=== PATIENT | female | born 2000 | race Caucasian/White ===

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

== ENCOUNTER 2019-01-14 21:54 | Outpatient (CLI) | payer OTHER, MEDICAID ==
[~2019-01-14] VITALS: Ht 152.4 cm; Wt 85.4 kg
[2019-01-14 22:07] VITALS: BP 128/69
--- NOTE | 2019-01-14 22:56 | IPNPDOC ---
Text Note Date of Service The patient was seen on 01/14/19. NOTE Subjective: Patient is a 18-year-old female who is a at 34.6 weeks gestation with an PAXTON of 02/20/19 based off of her LMP and consistent with her first trimester ultrasound. Her has samantha complicated by a prior section, anxiety, depression, and bipolar disorder. Her bipolar is being managed by Karen. She presents to L&D [facility] for abdominal pain of 7/10 in her upper abdomen that started at 9 pm tonight. Reports upper abdominal pain is intermittent. Cramping noted that is intermittent. She also reports some back pain that is intermittent for the last 3 days. She denies dysuria, leaking of fluid or vaginal bleeding. Patient is unsure if she is having contractions. States active movement. Patient is a smoker and has smoked 3 cigarettes prior to arriving to the unit. Objective: VS: see below. FHR 130, moderate variability, positive accelerations, no decelerations. Contractions: irregular. Urine dip is negative with S.005. A+Ox3; Respiratory: regular rate without use of accessory muscles; Abdomen: gravid. Non-tender to touch. SVE: 1/50/-2, scant show, midposition, soft. No change after 3 hours. Assessment: IUP at 34.6 weeks, contractions, not in labor Plan: A dose of acetaminophen given to help with pain. Patient was found asleep upon repeat assessment and had to be woken-up for a check. She reports no more pain, contractions or cramping. No change in cervical exam. Patient discharged to home. She is to follow-up on 01/17/19 for routine care. Reviewed access to care, kick count, labor signs, and danger signs to report. VS,Varunbone, I+O VS, Varunbone, I+O Vital Signs Date Time Temp Pulse Resp B/P (MAP) Pulse Ox O2 Delivery O2 Flow Rate FiO2 01/14/19 22:07 97.5 108 128/69 (88) MOUNIKA SUN CNM Jan 14, 2019 22:56
[2019-01-14] MEDS ORDERED: ACETAMINOPHEN 500 MG TAB PO ONE (23:00)
[2019-01-14 23:48] VITALS: BP 130/77
[2019-01-15 02:02] VITALS: BP 130/76
== END 2019-01-15 02:20 | disposition home or self-care (01) ==
LOC: M LDO 21:54
PROVIDERS: ATTEND Advanced Practice Midwife
DX: O47.03 False labor before 37 completed weeks of gestation, third trimester (principal); O26.893 Other specified pregnancy related conditions, third trimester; R10.10 Upper abdominal pain, unspecified; O99.343 Other mental disorders complicating pregnancy, third trimester; O99.333 Smoking (tobacco) complicating pregnancy, third trimester; Z3A.34 34 weeks gestation of pregnancy; Z79.899 Other long term (current) drug therapy
CPT/HCPCS: 59025; G0463

== ENCOUNTER 2019-01-15 13:07 | Outpatient (CLI) | payer OTHER, MEDICAID ==
[~2019-01-15] VITALS: Ht 152.4 cm; Wt 84.6 kg
[2019-01-15 13:25] VITALS: BP 146/72
[2019-01-15 13:44] VITALS: BP 112/67
[2019-01-15] MEDS ORDERED: FAMOTIDINE 20 MG TAB PO ONE (15:00)
[2019-01-15 15:11] VITALS: BP 124/59
== END 2019-01-15 16:01 | disposition home or self-care (01) ==
LOC: M LDO 13:07
PROVIDERS: ATTEND Specialist
DX: O47.03 False labor before 37 completed weeks of gestation, third trimester (principal); O26.893 Other specified pregnancy related conditions, third trimester; M54.5 Low back pain; R10.2 Pelvic and perineal pain; O99.613 Diseases of the digestive system complicating pregnancy, third trimester; K21.9 Gastro-esophageal reflux disease without esophagitis; Z3A.34 34 weeks gestation of pregnancy
CPT/HCPCS: 59025; G0378; G0463

== ENCOUNTER → 2019-01-18 | Outpatient (CLI) | payer OTHER, MEDICAID ==
[~2019-01-18] MED LIST changes: +ACET-683 PO; +ARIP1TAB; +ERRI0.35 PO; +EVEN10003 PO; +KEFL500C17 PO; -LAMO200T2 PO; +LAMO200T3 PO; +PREN29TA4 PO
[2019-01-18 11:34] LABS: HEMATOCRIT 34.1 % (36.0-47.0); HEMOGLOBIN 11.1 g/dl (12.0-15.5); MEAN CORPUSCULAR HEMOGLOBIN 29.4 pg (27.0-33.0); MEAN CORPUSCULAR HGB CONC 32.6 g/dl (32.0-36.5); MEAN CORPUSCULAR VOLUME 90.2 fl (80.0-96.0); PLATELET COUNT, AUTOMATED 205 10^3/uL (150-450); RED BLOOD COUNT 3.78 10^6/uL (4.00-5.40); WHITE BLOOD COUNT 11.2 10^3/uL (4.0-10.0)
--- NOTE | 2019-01-18 12:03 | REP ---
OB ULTRASOUND: Real-time sonographic evaluation of the gravid uterus is performed and demonstrates a single living intrauterine gestation. Estimated gestational age 35 weeks 2 days. Based on LMP EDC 02/20/2019. Today's measurements indicate appropriate growth. BPD 81 mm = 32 weeks 5 days, 12th percentile HC 306 mm = 34 weeks 1 day, 32nd percentile AC 307 mm = 34 weeks 5 days, 41st percentile Femur length 68 mm = 34 weeks 6 days, 42nd percentile HC/AC ratio 1.0 within normal range. Estimated weight 2432 grams, 34th percentile. heart rate 152 beats per minute. Amniotic fluid within normal limits, MADALYN 15.4 within normal range of 7.8-24.9. S/D ratio 2.79 and RI 0.64 within normal range. Visualized anatomy includes lateral ventricles, upper lip, stomach, kidneys, and bladder which are grossly unremarkable. position vertex. Placenta posterior and fundal and grade 1 to 2 with no previa or abruption. Electronically Signed by Vignesh Griffin MD 01/21/2019 11:15 A
== END ==
LOC: M RAD 07:58 → M LAB 07:58
PROVIDERS: ATTEND Advanced Practice Midwife
DX: Z34.82 Encounter for supervision of other normal pregnancy, second trimester (principal); Z3A.35 35 weeks gestation of pregnancy

== ENCOUNTER 2019-01-30 11:40 | Emergency (ER) | payer OTHER, MEDICAID ==
[~2019-01-30] VITALS: Ht 152.4 cm; Wt 87.3 kg
[~2019-01-30 11:40] MED LIST changes: -ACETAMINOPHEN 500 MG TAB PO ONE; -EVEN10003 PO
[2019-01-30 12:32] VITALS: BP 148/96
[2019-01-30 12:35] LABS: HEMATOCRIT 32.3 % (36.0-47.0); HEMOGLOBIN 10.6 g/dl (12.0-15.5); MEAN CORPUSCULAR HGB CONC 32.8 g/dl (32.0-36.5); MEAN CORPUSCULAR VOLUME 85.4 fl (80.0-96.0); PLATELET COUNT, AUTOMATED 196 10^3/uL (150-450); RED BLOOD COUNT 3.78 10^6/uL (4.00-5.40); WHITE BLOOD COUNT 12.9 10^3/uL (4.0-10.0)
[2019-01-30 12:50] LABS: INR 1.04; PROTHROMBIN TIME 13.3 SECONDS (11.8-14.0)
[2019-01-30 12:51] LABS: PARTIAL THROMBOPLASTIN TIME 27.6 SECONDS (25.0-38.4)
[2019-01-30] MEDS ORDERED: EVEN10003 PO (12:59)
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
[2019-01-30 13:25] LABS: ALBUMIN 2.6 GM/DL (3.2-5.2); ALT/SGPT 13 U/L (12-78); BILIRUBIN,TOTAL 0.5 MG/DL (0.2-1.0); BLOOD UREA NITROGEN 10 MG/DL (7-18); CALCIUM LEVEL 8.7 MG/DL (8.5-10.1); CARBON DIOXIDE LEVEL 22 MEQ/L (21-32); CHLORIDE LEVEL 107 MEQ/L (98-107); CREATININE FOR GFR 0.52 MG/DL (0.55-1.30); GLUCOSE, FASTING 101 MG/DL (70-100); POTASSIUM SERUM 3.7 MEQ/L (3.5-5.1); SODIUM LEVEL 138 MEQ/L (136-145); TOTAL PROTEIN 6.8 GM/DL (6.4-8.2)
--- NOTE | 2019-01-31 13:30 | ECGEPIP ---
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
== END 2019-01-30 12:35 | disposition admitted as inpatient to this hospital (09) ==
LOC: M ED 11:40
DX: S80.12XA Contusion of left lower leg, initial encounter (principal); W10.9XXA Fall (on) (from) unspecified stairs and steps, initial encounter; Y92.099 Unspecified place in other non-institutional residence as the place of occurrence of the external cause; Y93.9 Activity, unspecified; Y99.9 Unspecified external cause status; Z3A.37 37 weeks gestation of pregnancy; O99.343 Other mental disorders complicating pregnancy, third trimester; Z79.899 Other long term (current) drug therapy

== ENCOUNTER → 2019-01-30 | Outpatient (CLI) | payer OTHER, MEDICAID ==
[~2019-01-30] VITALS: Ht 152.4 cm; Wt 85.0 kg
[~2019-01-30] MED LIST changes: -ACET-683 PO; +ACETAMINOPHEN 500 MG TAB PO ONE; -ARIP1TAB; -ERRI0.35 PO; -KEFL500C17 PO; +LAMO200T2 PO; -LAMO200T3 PO; -PREN29TA4 PO
[2019-01-30 13:01] VITALS: BP 110/59
[2019-01-30 13:35] LABS: HEMATOCRIT 32.3 % (36.0-47.0); HEMOGLOBIN 10.7 g/dl (12.0-15.5); MEAN CORPUSCULAR HEMOGLOBIN 28.2 pg (27.0-33.0); MEAN CORPUSCULAR HGB CONC 33.1 g/dl (32.0-36.5); MEAN CORPUSCULAR VOLUME 85.2 fl (80.0-96.0); PLATELET COUNT, AUTOMATED 204 10^3/uL (150-450); RED BLOOD COUNT 3.79 10^6/uL (4.00-5.40); WHITE BLOOD COUNT 13.8 10^3/uL (4.0-10.0)
[2019-01-30 13:54] LABS: INR 1.07; PARTIAL THROMBOPLASTIN TIME 28.1 SECONDS (25.0-38.4); PROTHROMBIN TIME 13.6 SECONDS (11.8-14.0)
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
[2019-01-30 15:47] VITALS: BP 102/57
== END ==
LOC: M LDO 12:40
PROVIDERS: ATTEND Advanced Practice Midwife
DX: Z04.3 Encounter for examination and observation following other accident (principal); W10.9XXA Fall (on) (from) unspecified stairs and steps, initial encounter; Y92.89 Other specified places as the place of occurrence of the external cause; Y93.89 Activity, other specified; Y99.8 Other external cause status; O36.8931 Maternal care for other specified fetal problems, third trimester, fetus 1; Z3A.37 37 weeks gestation of pregnancy
CPT/HCPCS: 59025; G0378; G0463

== ENCOUNTER 2019-02-06 20:04 | Outpatient (CLI) | payer OTHER, MEDICAID ==
[~2019-02-06] VITALS: Ht 152.4 cm; Wt 85.4 kg
[~2019-02-06 20:04] MED LIST changes: -ACET-683 PO; -ERRI0.35 PO
[2019-02-06 20:17] VITALS: BP 133/65
[2019-02-06 20:38] VITALS: BP 133/65
[2019-02-06 22:44] VITALS: BP 135/77
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
== END 2019-02-06 23:19 | disposition home or self-care (01) ==
LOC: M LDO 20:04
PROVIDERS: ATTEND Advanced Practice Midwife
DX: O26.893 Other specified pregnancy related conditions, third trimester (principal); O36.8130 Decreased fetal movements, third trimester, not applicable or unspecified; R10.2 Pelvic and perineal pain; O47.1 False labor at or after 37 completed weeks of gestation; Z3A.38 38 weeks gestation of pregnancy
CPT/HCPCS: 36415; 59025; 87081; 87389; G0378; G0463

== ENCOUNTER → 2019-02-06 | Outpatient (CLI) | payer OTHER, MEDICAID ==
[~2019-02-06] MED LIST changes: +ACET-683 PO; +ERRI0.35 PO; +EVEN10003 PO
== END ==
LOC: M SMT 13:33
PROVIDERS: ATTEND Advanced Practice Midwife
DX: Z36.89 Encounter for other specified antenatal screening (principal)

== ENCOUNTER 2019-02-07 10:49 | Outpatient (CLI) | payer OTHER, MEDICAID ==
[~2019-02-07] VITALS: Ht 152.4 cm; Wt 84.5 kg
[2019-02-07 11:05] VITALS: BP 126/58
[2019-02-07 11:50] VITALS: BP 122/68
--- NOTE | 2019-02-07 14:23 | IPNPDOC ---
Text Note Date of Service The patient was seen on 02/07/19. NOTE S: 18 yo at 38 weeks 1 day EGA, complaining of leakage of fluid and progressively stronger contractions. Denies discharge or bleeding, had intercourse last night. Is feeling baby move O: Vital stable Abdomen: Gravid Sterile speculum exam: no pooling, nitrazine negative SVE: closed, thick, high Microscopy: no ferning FHR: 150 bpm, moderate variability, cat 1 tracing, reactive NST TOCO: no contractions Bedside US: MADALYN >7, MVP 2.75 A/P: 18 y at 38 weeks 1 day EGA, not in labor - status reassuring -adequate amniotic fluid volume -DC home, signs and symptoms early labor reviewed, access after hours VS,Fishbone, I+O VS, Fishbone, I+O Vital Signs Date Time Temp Pulse Resp B/P (MAP) Pulse Ox O2 Delivery O2 Flow Rate FiO2 02/07/19 11:50 77 18 122/68 (86) 02/07/19 11:05 97.7 GME ATTESTATION GME ATTESTATION My faculty preceptor for this patient encounter was physically present during the encounter and was fully available. All aspects of the patient interview, examination, medical decision making process, and medical care plan development were reviewed and approved by the faculty preceptor. The faculty preceptor is aware and concurs with the plan as stated in the body of this note and will attest to such by his/her cosignature. ANTONIO CLINE DO Feb 07, 2019 14:23
== END 2019-02-07 11:53 | disposition home or self-care (01) ==
LOC: M LDO 10:49
PROVIDERS: ATTEND Obstetrics & Gynecology
DX: O26.893 Other specified pregnancy related conditions, third trimester (principal); N89.8 Other specified noninflammatory disorders of vagina; O99.89 Other specified diseases and conditions complicating pregnancy, childbirth and the puerperium; N93.0 Postcoital and contact bleeding; Z3A.38 38 weeks gestation of pregnancy

== ENCOUNTER 2019-02-07 22:50 | Inpatient (IN) | payer OTHER, MEDICAID ==
[~2019-02-07] VITALS: Ht 152.4 cm; Wt 86.1 kg
[2019-02-07 23:11] VITALS: BP 142/82
[2019-02-07] MEDS ORDERED: PENICILLIN G POTASSIUM IV 5 MU in D5W MINI-BAG PLUS 100 ML IV STA (23:17)
[2019-02-07] MEDS ORDERED: LACTATED RINGER'S 1000 ML IV STA (23:17)
[2019-02-07] MEDS: LR 1,000 ML IV SCH (23:17)
[2019-02-07 23:40] LABS: HEMATOCRIT 32.2 % (36.0-47.0); HEMOGLOBIN 10.6 g/dl (12.0-15.5); MEAN CORPUSCULAR HEMOGLOBIN 28.6 pg (27.0-33.0); MEAN CORPUSCULAR HGB CONC 32.9 g/dl (32.0-36.5); PLATELET COUNT, AUTOMATED 218 10^3/uL (150-450); WHITE BLOOD COUNT 13.2 10^3/uL (4.0-10.0)
[2019-02-08] VITALS (51 sets, daily range): BP systolic 78–144; BP diastolic 48–113
[2019-02-08 00:53] LABS: AMPHETAMINES URINE REFLEX NEGATIVE (NEGATIVE); BARBITURATES URINE REFLEX NEGATIVE (NEGATIVE); BENZODIAZEPINES URINE REFLEX NEGATIVE (NEGATIVE); CANNABINOIDS URINE REFLEX NEGATIVE (NEGATIVE); COCAINE METABOLITE URINE REFLE NEGATIVE (NEGATIVE); METHADONE URINE REFLEX NEGATIVE (NEGATIVE); OPIATES URINE REFLEX NEGATIVE (NEGATIVE); PHENCYCLIDINE URINE REFLEX NEGATIVE (NEGATIVE)
[2019-02-08] MEDS ORDERED: OXYTOCIN DRIP 30 UNITS in APPROPRIATE DILUENT 1 EA IV SCH (01:00)
[2019-02-08] MEDS: PENICILLIN G POTASSIUM IV 2.5 MU in APPROPRIATE DILUENT 1 EA IV SCH ×2 (04:19→08:35)
[2019-02-08] MEDS ORDERED: FENTANYL 2MCG/ML ROPIVACAINE 0.2% IN 0.9% NACL 100ML IVBAG As Ordered ONE (04:51)
[2019-02-08] MEDS ORDERED: EPIDURAL/PCA KEYS XX PRN (06:00)
[2019-02-08] MEDS ORDERED: diphenhydrAMINE INJ 50MG/ML VIAL (J1200) IV PRN (06:00)
[2019-02-08] MEDS ORDERED: REFRIGERATOR IV KEYS XX PRN (06:00)
[2019-02-08] MEDS ORDERED: ePHEDrine SULFATE 25 MG/5 ML(5MG/ML) SYRINGE IV PRN (06:00)
[2019-02-08] MEDS ORDERED: ONDANSETRON 4MG/2ML VIAL (J2405) IV PRN (06:00)
[2019-02-08] MEDS ORDERED: EPIDURAL COMMENT XX SCH (06:00)
[2019-02-08] MEDS ORDERED: FENTANYL/ROPIVACAINE/NACL BAG 100 ML EPIDURAL SCH (06:00)
[2019-02-08] MEDS ORDERED: LACTATED RINGER'S 1000 ML IV PRN (06:00)
[2019-02-08] MEDS ORDERED: NALOXONE INJ 0.4 MG/1 ML VIAL (J2310) IV PRN (06:00)
[2019-02-08] MEDS: LR 1,000 ML IV SCH (07:52)
--- NOTE | 2019-02-08 08:46 | IPNPDOC ---
Text Note Date of Service The patient was seen on 02/08/19. NOTE Reports feeling more pressure FH variable decels, moderate variability, Cat II SVE Update phyician. Anticipate VS,Fishbone, I+O VS, Fishbone, I+O Laboratory Tests 02/07/19 23:34 Red Blood Count 3.70 L, Mean Corpuscular Volume 87.0, Mean Corpuscular Hemoglobin 28.6, Mean Corpuscular Hemoglobin Concent 32.9, Red Cell Distribution Width 14.3 Vital Signs Date Time Temp Pulse Resp B/P (MAP) Pulse Ox O2 Delivery O2 Flow Rate FiO2 02/08/19 07:49 75 18 125/56 (79) 02/08/19 07:42 98.7 Anyi Chan CNM Feb 08, 2019 08:46
[2019-02-08 11:16] LABS: CORD GAS ABE V -5.9; CORD GAS HCO3 V 18.4 MEQ/L; CORD GAS O2 SAT V 92.4 %; CORD GAS PCO2 V 33.1 mmHg; CORD GAS PH V 7.363 UNITS; CORD GAS PO2 V 53.1 mmHg; CORD GAS SBC V 19.6 MEQ/L; CORD GAS TCO2 V 19.4 MEQ/L
[2019-02-08 11:18] LABS: CORD GAS ABE A -7.4; CORD GAS HCO3 A 19.2 MEQ/L; CORD GAS O2 SAT A 93.6 %; CORD GAS PH A 7.268 UNITS; CORD GAS SBC A 18.4 MEQ/L; CORD GAS TCO2 A 20.5 MEQ/L
[2019-02-08] MEDS ORDERED: MOM 30ML SUSPENSION UDC PO PRN (11:30)
[2019-02-08] MEDS ORDERED: RHOGAM 300 MCG (1500 IU) INJ (J2790) IM SCH (11:30)
[2019-02-08] MEDS ORDERED: IBUPROFEN 600 MG TAB PO PRN (11:30)
[2019-02-08] MEDS ORDERED: ACETAMINOPHEN TAB 650MG DOSE (2X325MG) PO PRN (11:30)
[2019-02-08] MEDS ORDERED: DIBUCAINE 1% OINTMENT 30GM TOP PRN (11:30)
[2019-02-08] MEDS ORDERED: DOCUSATE SODIUM 100 MG CAP PO PRN (11:30)
[2019-02-08] MEDS ORDERED: MEASLES,MUMPS,RUBELLA VACCINE INJ (MMR-II) (90707) SC SCH (11:30)
[2019-02-08] MEDS ORDERED: METHYLERGONOVINE MALEATE 0.2 MG TAB PO PRN (11:30)
--- NOTE | 2019-02-08 11:35 | DNPDOC ---
[facility] Delivery Note Delivery Note DATE OF DELIVERY: 02/08/19 PREDELIVERY DIAGNOSIS: 38+2/7 weeks' gestation and labor. POST DELIVERY DIAGNOSIS: Delivered. PROCEDURE: Spontaneous vaginal delivery/ . PROVIDER: Anyi Chan CNM ANESTHESIA: Epidural. ESTIMATED BLOOD LOSS: 300 mL. FINDINGS: 6 pound 13 ounce, 3100gm female , Score 8/9, nuchal cord times 1 tight. DELIVERY SUMMARY: Patient is a 18-year-old 2 now para 2-0-0-2 who was admitted to labor and delivery for spontaneous rupture of membranes 02/07/19 @ 2100. She received pitocin augmentation of labor and adequate GBS prophylaxis. An epidural was utilized for labor coping. Fully dilated 1000. Viable female delivered KORY, restituted to LOP and delivered via somersault maneuver through tight nuchal cord @ 1048. Successful . Spontaneous respirations, transiti oned on maternal abdomen. Cord gases obtained, arterial 7.268, BE -7.4 and venous 7.363, BE -5.9. Cord doubly clamped and cut once pulsations ceased, apgars 8/9. Placenta art, intact with 3v cord @ 1059. Fundus firmed with massage and IV pitocin bolus. 2nd degree vaginal laceration with bilateral labial extensions repaired with 3-0 vicryl rapide. EBL 300ml. Sponge, sharp and instrument count correct. Mom is naming her daughter Vanessa. Anyi Chan CNM Feb 08, 2019 11:35
[2019-02-08] MEDS: ACETAMINOPHEN 500 MG TAB PO PRN (17:59)
[2019-02-09 06:00] VITALS: BP 104/59
[2019-02-09] MEDS: IBUPROFEN 800 MG TAB PO PRN (06:22)
[2019-02-09] MEDS: PRENATAL VITAMINS CHEWABLE TABLET PO SCH (08:29)
--- NOTE | 2019-02-09 08:43 | IPNPDOC ---
Text Note Date of Service The patient was seen on 02/09/19. NOTE Day 1 s/p ; uncomplicated S: Pain well controlled, lochia and bleeding decreasing, voiding spontaneously, ambulating without assistance, tolerating regular diet.Breast feeding. O: vitals stable Heart: RRR, no murmurs/gallops/rubs Lungs: CTA BL Abd: U-1 and firm Ext: mild bilateral leg swelling, nontender, Lilliam's negative bilaterally A/P: 18 yo G2 now P2. day 1 s/p . Currently hemodynamically stable, afebrile, good pain control. Recovering well. -Routine care and advancement -Anticipate discharge tomorrow VS,Fishbone, I+O VS, Fishbone, I+O Vital Signs Date Time Temp Pulse Resp B/P (MAP) Pulse Ox O2 Delivery O2 Flow Rate FiO2 02/09/19 06:00 97.2 67 16 104/59 (74) 98 I&O- Last 24 Hours up to 6 AM 02/09/19 06:00 Intake Total 2847 ml Output Total 2000 ml Balance 847 ml GME ATTESTATION GME ATTESTATION My faculty preceptor for this patient encounter was physically present during the encounter and was fully available. All aspects of the patient interview, examination, medical decision making process, and medical care plan development were reviewed and approved by the faculty preceptor. The faculty preceptor is aware and concurs with the plan as stated in the body of this note and will attest to such by his/her cosignature. ANTONIO CLINE DO Feb 09, 2019 08:43
[2019-02-09] MEDS: ACETAMINOPHEN 500 MG TAB PO PRN (17:50)
[2019-02-09 18:00] VITALS: BP 117/72
[2019-02-10] MEDS: IBUPROFEN 800 MG TAB PO PRN (05:20)
[2019-02-10 06:47] VITALS: BP 109/60
[2019-02-10] MEDS: PRENATAL VITAMINS CHEWABLE TABLET PO SCH (09:22)
[2019-02-10] MEDS ORDERED: ERRI0.35 PO (11:53)
[2019-02-10] MEDS ORDERED: ACET-683 PO (11:53)
[2019-02-10] MEDS ORDERED: IBUP80TA PO (11:53)
== END 2019-02-10 12:35 | disposition home or self-care (01) | DRG 807 ==
LOC: M LDO 22:50 → M LDI 23:04 → M OBS 02-08 14:06
PROVIDERS: ADMIT Obstetrics & Gynecology; ATTEND Advanced Practice Midwife
PROC: 10E0XZZ Delivery of Products of Conception, External Approach (ICD-10-PCS; principal; 2019-02-08)
PROC: 0KQM0ZZ Repair Perineum Muscle, Open Approach (ICD-10-PCS; 2019-02-08)
DX: O34.211 Maternal care for low transverse scar from previous cesarean delivery (principal); Z37.0 Single live birth; Z3A.38 38 weeks gestation of pregnancy; O99.824 Streptococcus B carrier state complicating childbirth; O70.1 Second degree perineal laceration during delivery; O69.1XX0 Labor and delivery complicated by cord around neck, with compression, not applicable or unspecified

== ENCOUNTER 2019-03-30 15:58 | Emergency (ER) | payer OTHER, MEDICAID ==
[~2019-03-30] VITALS: Ht 152.4 cm; Wt 83.3 kg
[~2019-03-30 15:58] MED LIST changes: +ACET-683 PO; +ERRI0.35 PO
[2019-03-30] MEDS ORDERED: ARIP1TAB (16:04)
[2019-03-30 16:48] LABS: URINE PREG TEST NEGATIVE (NEGATIVE)
[2019-03-30 17:37] LABS: BASO # 0.1 10^3/uL (0.0-0.2); BASO % 0.8 % (0.0-1.0); EOS # 0.5 10^3/uL (0.0-0.5); EOS % 4.6 % (0.0-3.0); HEMOGLOBIN 12.8 g/dl (12.0-15.5); LYMPH # 1.8 10^3/uL (1.5-5.0); LYMPH % 18.1 % (24.0-44.0); MEAN CORPUSCULAR HEMOGLOBIN 27.4 pg (27.0-33.0); MEAN CORPUSCULAR VOLUME 85.5 fl (80.0-96.0); MONO # 0.5 10^3/uL (0.0-0.8); MONO % 4.9 % (0.0-5.0); NEUTROPHILS # 7.1 10^3/uL (1.5-8.5); NEUTROPHILS % 71.4 % (36.0-66.0); PLATELET COUNT, AUTOMATED 297 10^3/uL (150-450); RED BLOOD COUNT 4.68 10^6/uL (4.00-5.40); WHITE BLOOD COUNT 9.9 10^3/uL (4.0-10.0)
[2019-03-30 18:04] LABS: ALBUMIN 3.6 GM/DL (3.2-5.2); ALT/SGPT 30 U/L (12-78); BILIRUBIN,DIRECT 0.2 MG/DL (0.0-0.2); BILIRUBIN,TOTAL 0.6 MG/DL (0.2-1.0); BLOOD UREA NITROGEN 11 MG/DL (7-18); CALCIUM LEVEL 8.8 MG/DL (8.5-10.1); CARBON DIOXIDE LEVEL 28 MEQ/L (21-32); CHLORIDE LEVEL 108 MEQ/L (98-107); CREATININE FOR GFR 0.72 MG/DL (0.55-1.30); GLUCOSE, FASTING 80 MG/DL (70-100); LIPASE 104 U/L (73-393); POTASSIUM SERUM 4.1 MEQ/L (3.5-5.1); SODIUM LEVEL 140 MEQ/L (136-145)
[2019-03-30] MEDS ORDERED: MACR100C43 PO ×2 (18:33→19:40)
[2019-03-30 18:34] LABS: CHLAMYDIA DNA AMPLIFICATION NEGATIVE (NEGATIVE); GC DNA AMPLIFICATION NEGATIVE (NEGATIVE)
[2019-03-30] MEDS ORDERED: NITROFURANTOIN (MACROBID) 100 MG CAP PO ONE (18:45)
--- NOTE | 2019-03-30 19:21 | REPVR ---
PROCEDURE INFORMATION: Exam: US Pelvis Complete, Transabdominal and US Pelvis, Transvaginal Exam date and time: 03/30/2019 6:20 PM Clinical history: 18 years old, female; Pelvic pain; Additional info: Suprapubic, llq pain R/O torsion TECHNIQUE: Imaging protocol: Real-time transabdominal and transvaginal pelvic ultrasound (complete) with image documentation. Transvaginal imaging was used for better evaluation of the endometrium and adnexa. COMPARISON: US OBS FOLL UP OR REPEAT EACH GES 01/18/2019 9:18 AM FINDINGS: Uterus/cervix: The uterus is anteverted. The uterus has a normal appearance. The uterus measures 8.6 cm x 4.1 cm x 4.7 cm. The endometrial stripe measures 5.2 mm. There are a few endometrial calcifications, nonspecific. Right adnexa: The right ovary has a normal appearance, containing multiple tiny follicles. The right ovary measures 3.4 cm x 1.9 cm x 2.0 cm. No right ovarian torsion. Left adnexa: The left ovary is best visualized on transabdominal imaging and has a normal appearance, measuring 3.0 cm x 1.3 cm x 1.7 cm. No left ovarian torsion. Free fluid: None. Bladder: Urinary bladder is nondistended and not visualized. IMPRESSION: No ovarian torsion or other acute abnormality. Electronically signed by: Ousmane Pugh On 03/30/2019 19:21:31 PM
[2019-03-30 19:23] VITALS: BP 121/76
== END 2019-03-30 19:52 | disposition home or self-care (01) ==
LOC: M ED 15:58
DX: N39.0 Urinary tract infection, site not specified (principal); F17.200 Nicotine dependence, unspecified, uncomplicated; Z79.899 Other long term (current) drug therapy

== ENCOUNTER 2019-04-22 19:59 | Emergency (ER) | payer OTHER, MEDICAID ==
[~2019-04-22] VITALS: Ht 152.4 cm; Wt 85.9 kg
[2019-04-22 19:59] VITALS: BP 138/81
[~2019-04-22 19:59] MED LIST changes: +ARIP1TAB
== END 2019-04-22 21:38 | disposition home or self-care (01) ==
LOC: M ED 19:59
DX: R11.2 Nausea with vomiting, unspecified (principal); F31.89 Other bipolar disorder; F41.9 Anxiety disorder, unspecified; F60.3 Borderline personality disorder; F17.200 Nicotine dependence, unspecified, uncomplicated; E66.9 Obesity, unspecified; Z79.3 Long term (current) use of hormonal contraceptives; Z79.899 Other long term (current) drug therapy

== ENCOUNTER 2019-05-19 18:12 | Emergency (ER) | payer OTHER, MEDICAID ==
[~2019-05-19] VITALS: Ht 152.4 cm; Wt 87.1 kg
[~2019-05-19 18:12] MED LIST changes: -LAMO200T2 PO; +LAMO200T3 PO
[2019-05-19] MEDS ORDERED: AZITHROMYCIN 250 MG TAB PO ONE (19:15)
[2019-05-19] MEDS ORDERED: AZITHROMYCIN SUSP 200MG/5ML 30ML BOTTLE (FOR INPATIENT ORDERS) PO ONE (19:15)
[2019-05-19] MEDS ORDERED: cefTRIAXone SOD 250 MG VIAL (J0696) IM ONE (19:15)
[2019-05-19] MEDS ORDERED: LIDOCAINE 1% SDV 5 ML VIAL DILUENT ONE (19:15)
[2019-05-19 19:29] VITALS: BP 131/81
[2019-05-19 20:36] LABS: CHLAMYDIA DNA AMPLIFICATION POSITIVE (NEGATIVE); GC DNA AMPLIFICATION NEGATIVE (NEGATIVE)
== END 2019-05-19 19:31 | disposition home or self-care (01) ==
LOC: M ED 18:12
DX: Z11.3 Encounter for screening for infections with a predominantly sexual mode of transmission (principal); A74.9 Chlamydial infection, unspecified; Z72.51 High risk heterosexual behavior; F17.200 Nicotine dependence, unspecified, uncomplicated; Z79.3 Long term (current) use of hormonal contraceptives
CPT/HCPCS: 84702; 87210; 87661; 99283; J0696

== ENCOUNTER 2019-06-16 09:46 | Emergency (ER) | payer OTHER, MEDICAID ==
[~2019-06-16] VITALS: Ht 152.4 cm; Wt 86.0 kg
[2019-06-16] MEDS ORDERED: PREN29TA4 PO (10:25)
[2019-06-16 10:33] LABS: BASO % 0.5 % (0.0-1.0); EOS # 0.1 10^3/uL (0.0-0.5); EOS % 1.9 % (0.0-3.0); HEMATOCRIT 40.1 % (36.0-47.0); HEMOGLOBIN 12.7 g/dl (12.0-15.5); LYMPH # 1.8 10^3/uL (1.5-5.0); LYMPH % 31.1 % (24.0-44.0); MEAN CORPUSCULAR HEMOGLOBIN 26.6 pg (27.0-33.0); MEAN CORPUSCULAR HGB CONC 31.7 g/dl (32.0-36.5); MEAN CORPUSCULAR VOLUME 83.9 fl (80.0-96.0); MONO # 0.5 10^3/uL (0.0-0.8); MONO % 8.1 % (0.0-5.0); NEUTROPHILS # 3.3 10^3/uL (1.5-8.5); NEUTROPHILS % 58.2 % (36.0-66.0); PLATELET COUNT, AUTOMATED 226 10^3/uL (150-450); RED BLOOD COUNT 4.78 10^6/uL (4.00-5.40); WHITE BLOOD COUNT 5.7 10^3/uL (4.0-10.0)
[2019-06-16 10:50] LABS: BLOOD UREA NITROGEN 8 MG/DL (7-18); CALCIUM LEVEL 8.4 MG/DL (8.5-10.1); CARBON DIOXIDE LEVEL 24 MEQ/L (21-32); CHLORIDE LEVEL 109 MEQ/L (98-107); CREATININE FOR GFR 0.71 MG/DL (0.55-1.30); GLUCOSE, FASTING 95 MG/DL (70-100); SODIUM LEVEL 142 MEQ/L (136-145)
--- NOTE | 2019-06-16 12:15 | REP ---
EMERGENCY FIRST TRIMESTER OBSTETRIC SONOGRAPHY: History: Vaginal bleeding. LMP May 25, 2019. FINDINGS: Transabdominal and transvaginal scanning demonstrates a normal-sized empty uterus. Uterine dimensions are 9.4 x 4.0 x 4.9 cm. Endometrial echo is 0.6 cm thick. No intrauterine gestation is seen. No gestational sac or embryonic pole is seen. No free fluid is noted. Normal left ovary is seen measuring 3.2 x 1.3 x 1.5 cm. Right ovary is unremarkable measuring 2.6 x 1.5 x 1.9 cm. Ovarian Doppler flow is present bilaterally, resistive indices are 0.54 and 0.66 on the right and left respectively. IMPRESSION: No intrauterine gestational sac seen. No adnexal lesion or free fluid noted. Nonspecific sonographic findings in the face of positive test. Clinical and possibly sonographic followup suggested. Electronically Signed by Camacho Maharaj MD 06/16/2019 12:18 P
[2019-06-16 12:49] LABS: CHLAMYDIA DNA AMPLIFICATION POSITIVE (NEGATIVE); GC DNA AMPLIFICATION NEGATIVE (NEGATIVE)
[2019-06-16] MEDS ORDERED: AZITHROMYCIN 250 MG TAB PO ONE (13:00)
[2019-06-16] MEDS ORDERED: KEFL500C17 PO (13:14)
[2019-06-16 13:20] VITALS: BP 114/85
== END 2019-06-16 13:30 | disposition home or self-care (01) ==
LOC: M ED 09:46
DX: O20.0 Threatened abortion (principal); O23.41 Unspecified infection of urinary tract in pregnancy, first trimester; O98.311 Other infections with a predominantly sexual mode of transmission complicating pregnancy, first trimester; O23.591 Infection of other part of genital tract in pregnancy, first trimester; O26.891 Other specified pregnancy related conditions, first trimester; O20.8 Other hemorrhage in early pregnancy; Z32.01 Encounter for pregnancy test, result positive; Z86.19 Personal history of other infectious and parasitic diseases; Z87.448 Personal history of other diseases of urinary system; O99.341 Other mental disorders complicating pregnancy, first trimester; O99.331 Smoking (tobacco) complicating pregnancy, first trimester; Z79.899 Other long term (current) drug therapy

== ENCOUNTER → 2019-06-18 | Outpatient (CLI) | payer OTHER, MEDICAID ==
[~2019-06-18] MED LIST changes: +KEFL500C17 PO; +PREN29TA4 PO
== END ==
LOC: M LAB 08:13
PROVIDERS: ATTEND Physician Assistant
DX: O46.90 Antepartum hemorrhage, unspecified, unspecified trimester (principal)

== ENCOUNTER 2019-08-04 00:01 | Emergency (ER) | payer OTHER, MEDICAID ==
[~2019-08-04] VITALS: Ht 152.4 cm; Wt 81.0 kg
[2019-08-04] MEDS ORDERED: GI COCKTAIL 50ML BTL(HYOSCYAMINE/MAALOX/LIDOCAINE VISCOUS)(1:3:1) PO ONE (00:45)
[2019-08-04] MEDS ORDERED: NS 1,000 ML IV ONE (00:45)
--- NOTE | 2019-08-04 01:35 | REPVR ---
PROCEDURE INFORMATION: Exam: US Abdomen Limited, Right Upper Quadrant Exam date and time: 08/04/2019 1:17 AM Age: 19 years old Clinical indication: Abdominal pain; Epigastric; Additional info: Ruq abd pain TECHNIQUE: Imaging protocol: Real-time ultrasound of the abdomen with image documentation. Examination was focused on the right upper quadrant. COMPARISON: No relevant prior studies available. FINDINGS: Liver: The liver demonstrates increased attenuation with no focal defects. Gallbladder: The gallbladder is contracted with no stones and no wall thickening measuring 1-2 mm. There is a negative sono Pratt's sign. Common bile duct: The CBD measures 3 mm. Pancreas: The pancreas is not evaluated due to gas shadowing. Right kidney: The right kidney measures 11.9 cm with no hydronephrosis. IMPRESSION: 1. Fatty infiltration of the liver. 2. Otherwise negative right upper quadrant sonogram. The pancreas is not evaluated due to gas shadowing. Electronically signed by: Mehul Muñoz On 08/04/2019 01:35:34 AM
[2019-08-04 01:40] LABS: BASO # 0.1 10^3/uL (0.0-0.2); BASO % 0.4 % (0.0-1.0); EOS # 0.4 10^3/uL (0.0-0.5); HEMATOCRIT 38.1 % (36.0-47.0); HEMOGLOBIN 12.5 g/dl (12.0-15.5); LYMPH # 2.1 10^3/uL (1.5-5.0); LYMPH % 17.8 % (24.0-44.0); MEAN CORPUSCULAR HEMOGLOBIN 27.5 pg (27.0-33.0); MEAN CORPUSCULAR HGB CONC 32.8 g/dl (32.0-36.5); MEAN CORPUSCULAR VOLUME 83.7 fl (80.0-96.0); MONO # 0.6 10^3/uL (0.0-0.8); MONO % 5.2 % (0.0-5.0); NEUTROPHILS # 8.6 10^3/uL (1.5-8.5); NEUTROPHILS % 73.2 % (36.0-66.0); PLATELET COUNT, AUTOMATED 279 10^3/uL (150-450); RED BLOOD COUNT 4.55 10^6/uL (4.00-5.40); WHITE BLOOD COUNT 11.8 10^3/uL (4.0-10.0)
[2019-08-04 02:00] LABS: ALBUMIN 3.5 GM/DL (3.2-5.2); BILIRUBIN,DIRECT 0.2 MG/DL (0.0-0.2); BILIRUBIN,TOTAL 0.5 MG/DL (0.2-1.0); TOTAL PROTEIN 6.6 GM/DL (6.4-8.2)
[2019-08-04] MEDS ORDERED: OMEP40CA97 PO (03:07)
[2019-08-04 03:13] VITALS: BP 150/66
== END 2019-08-04 03:21 | disposition home or self-care (01) ==
LOC: EDBD 00:01 → M ED 00:01
DX: R10.13 Epigastric pain (principal); F41.9 Anxiety disorder, unspecified; F32.9 Major depressive disorder, single episode, unspecified; K76.0 Fatty (change of) liver, not elsewhere classified; F17.200 Nicotine dependence, unspecified, uncomplicated; Z79.899 Other long term (current) drug therapy

== ENCOUNTER → 2019-11-21 | Outpatient (REF) | payer OTHER, MEDICAID ==
[~2019-11-21] MED LIST changes: -ERRI0.35 PO; +ERRI0.355 PO; +OMEP40CA97 PO
== END ==
LOC: M LAB REF 13:28
PROVIDERS: ATTEND Physician Assistant
DX: N39.0 Urinary tract infection, site not specified (principal)

== ENCOUNTER 2019-12-04 10:48 | Emergency (ER) | payer OTHER, MEDICAID ==
[~2019-12-04] VITALS: Ht 152.4 cm; Wt 77.3 kg
[2019-12-04 11:21] LABS: BASO % 0.4 % (0.0-1.0); EOS # 0.2 10^3/uL (0.0-0.5); EOS % 2.2 % (0.0-3.0); HEMATOCRIT 41.1 % (36.0-47.0); HEMOGLOBIN 13.2 g/dl (12.0-15.5); LYMPH # 2.3 10^3/uL (1.5-5.0); LYMPH % 25.1 % (24.0-44.0); MEAN CORPUSCULAR HEMOGLOBIN 27.8 pg (27.0-33.0); MEAN CORPUSCULAR HGB CONC 32.1 g/dl (32.0-36.5); MEAN CORPUSCULAR VOLUME 86.5 fl (80.0-96.0); MONO # 0.6 10^3/uL (0.0-0.8); MONO % 6.1 % (0.0-5.0); NEUTROPHILS % 65.8 % (36.0-66.0); PLATELET COUNT, AUTOMATED 236 10^3/uL (150-450); RED BLOOD COUNT 4.75 10^6/uL (4.00-5.40); WHITE BLOOD COUNT 9.2 10^3/uL (4.0-10.0)
[2019-12-04 11:45] LABS: BLOOD UREA NITROGEN 13 MG/DL (7-18); CALCIUM LEVEL 8.9 MG/DL (8.5-10.1); CARBON DIOXIDE LEVEL 26 MEQ/L (21-32); CHLORIDE LEVEL 108 MEQ/L (98-107); CREATININE FOR GFR 0.72 MG/DL (0.55-1.30); GLUCOSE, FASTING 92 MG/DL (70-100); HCG, SERUM QUANTITATIVE < 1.0 MIU/ML; POTASSIUM SERUM 4.1 MEQ/L (3.5-5.1); SODIUM LEVEL 141 MEQ/L (136-145)
[2019-12-04 13:36] LABS: CHLAMYDIA DNA AMPLIFICATION NEGATIVE (NEGATIVE); GC DNA AMPLIFICATION NEGATIVE (NEGATIVE)
[2019-12-04] MEDS ORDERED: FLAG500T PO (13:39)
[2019-12-04 13:45] VITALS: BP 102/51
[2019-12-04] MEDS ORDERED: metroNIDAZOLE (FLAGYL) 500 MG TAB PO ONE (13:45)
--- NOTE | 2019-12-04 15:19 | REP ---
PELVIC ULTRASOUND: Real-time sonographic evaluation of the pelvis is performed utilizing transabdominal and endovaginal technique. The bladder measures 5.1 x 2.3 x 6.1 cm. The uterus measures 8.4 x 3.5 x 4.5 cm. Endometrial thickness is 8 mm. There is no endometrial fluid collection. Right ovary measures 2.8 x 2.2 x 1.9 cm and left ovary 2.9 x 1.6 x 1.6 cm. There is dominant follicle of the right ovary 1.7 cm in diameter. There is no other evidence of adnexal mass. There is no free fluid. There is no evidence of ovarian torsion with duplex Doppler evaluation. IMPRESSION: There is a dominant follicle of the right ovary 1.7 cm in diameter. Otherwise no evidence of mass or free fluid. No evidence of ovarian torsion. Electronically Signed by Vignesh Griffin MD 12/04/2019 07:38 P
== END 2019-12-04 13:52 | disposition home or self-care (01) ==
LOC: M ED 10:48
DX: N76.0 Acute vaginitis (principal); Z86.19 Personal history of other infectious and parasitic diseases; Z87.59 Personal history of other complications of pregnancy, childbirth and the puerperium; Z72.0 Tobacco use; F12.10 Cannabis abuse, uncomplicated; Z79.899 Other long term (current) drug therapy

== ENCOUNTER 2020-01-14 12:55 | Emergency (ER) | payer OTHER, MEDICAID ==
[~2020-01-14 12:55] MED LIST changes: +FLAG500T PO
[2020-02-11 11:58] LABS: APPEARANCE, URINE CLEAR (CLEAR); BACTERIA, URINE AUTO 1+ (NEGATIVE); BILIRUBIN, URINE AUTO NEGATIVE (NEGATIVE); BLOOD, URINE BLOOD NEGATIVE (NEGATIVE); COLOR, URINE YELLOW (YELLOW); GLUCOSE, URINE (UA) AUTO NEGATIVE (NEGATIVE); KETONE, URINE AUTO NEGATIVE (NEGATIVE); LEUKOCYTE ESTERASE, URINE AUTO TRACE (NEGATIVE); MUCUS, URINE SMALL (NEGATIVE); NITRITE, URINE AUTO NEGATIVE (NEGATIVE); PROTEIN, URINE AUTO NEGATIVE (NEGATIVE); RBC, URINE AUTO 0 /HPF (0-3); SPECIFIC GRAVITY URINE AUTO 1.015 (1.002-1.035); SQUAMOUS EPITHELIAL CELL UR AU 1 /HPF (0-6); UROBILINOGEN, URINE AUTO 0.2 mg/dL (0.0-2.0); WBC, URINE AUTO 0 /HPF (0-3)
[2020-02-11 16:07] LABS: BASO # 0.1 10^3/uL (0.0-0.2); BASO % 0.5 % (0.0-1.0); EOS # 0.2 10^3/uL (0.0-0.5); EOS % 1.9 % (0.0-3.0); HEMOGLOBIN 14.1 g/dl (12.0-15.5); LYMPH # 1.9 10^3/uL (1.5-5.0); LYMPH % 18.5 % (24.0-44.0); MEAN CORPUSCULAR HEMOGLOBIN 28.3 pg (27.0-33.0); MEAN CORPUSCULAR HGB CONC 32.8 g/dl (32.0-36.5); MEAN CORPUSCULAR VOLUME 86.2 fl (80.0-96.0); MONO # 0.5 10^3/uL (0.0-0.8); MONO % 4.9 % (0.0-5.0); NEUTROPHILS # 7.5 10^3/uL (1.5-8.5); NEUTROPHILS % 73.9 % (36.0-66.0); PLATELET COUNT, AUTOMATED 243 10^3/uL (150-450); RED BLOOD COUNT 4.99 10^6/uL (4.00-5.40); WHITE BLOOD COUNT 10.2 10^3/uL (4.0-10.0)
[2020-02-29 09:27] LABS: HCG, SERUM QUALITATIVE NEGATIVE (NEGATIVE)
[2020-02-29 09:41] LABS: ALBUMIN 4.2 GM/DL (3.2-5.2); ALT/SGPT 26 U/L (12-78); BILIRUBIN,DIRECT 0.1 MG/DL (0.0-0.2); BILIRUBIN,TOTAL 0.8 MG/DL (0.2-1.0); BLOOD UREA NITROGEN 14 MG/DL (7-18); CALCIUM LEVEL 9.2 MG/DL (8.5-10.1); CARBON DIOXIDE LEVEL 27 MEQ/L (21-32); CHLORIDE LEVEL 109 MEQ/L (98-107); CREATININE FOR GFR 0.76 MG/DL (0.55-1.30); GLUCOSE, FASTING 85 MG/DL (70-100); LIPASE 107 U/L (73-393); POTASSIUM SERUM 4.2 MEQ/L (3.5-5.1); SODIUM LEVEL 139 MEQ/L (136-145); TOTAL PROTEIN 7.8 GM/DL (6.4-8.2)
== END 2020-01-14 15:50 | disposition home or self-care (01) ==
LOC: M ED 12:55
DX: R11.0 Nausea (principal); R19.7 Diarrhea, unspecified; M54.5 Low back pain; Z79.899 Other long term (current) drug therapy

== ENCOUNTER → 2020-02-05 | Outpatient (REF) | payer OTHER, MEDICAID ==
[~2020-02-05] MED LIST changes: +ARIP1TAB10 PO; +CEFP200T PO; +METR-265 PO; +NITR100C2 PO; +PHEN-501 PO
[2020-02-05 18:55] LABS: APPEARANCE, URINE CLOUDY (CLEAR); BACTERIA, URINE AUTO NEGATIVE (NEGATIVE); BILIRUBIN, URINE AUTO NEGATIVE (NEGATIVE); BLOOD, URINE BLOOD 2+ (NEGATIVE); COLOR, URINE AMBER (YELLOW); GLUCOSE, URINE (UA) AUTO NEGATIVE (NEGATIVE); KETONE, URINE AUTO NEGATIVE (NEGATIVE); LEUKOCYTE ESTERASE, URINE AUTO 3+ (NEGATIVE); NITRITE, URINE AUTO NEGATIVE (NEGATIVE); PROTEIN, URINE AUTO 2+ mg/dL (NEGATIVE); RBC, URINE AUTO 5 /HPF (0-3); SPECIFIC GRAVITY URINE AUTO 1.012 (1.002-1.035); SQUAMOUS EPITHELIAL CELL UR AU 5 /HPF (0-6); WBC, URINE AUTO TNTC /HPF (0-3)
--- NOTE | 2020-02-08 11:42 | DS.PDOC ---
Discharge Summary General Date of Admission Date of Discharge 02/08/20 Discharge Summary PROCEDURES PERFORMED DURING STAY: [None]. ADMITTING DIAGNOSES: 1. [UTI]. DISCHARGE DIAGNOSES: 1. [UTI,Anxiety disorder,Bipolar disorder]. COMPLICATIONS/CHIEF COMPLAINT: Lab Wrk. HISTORY OF PRESENT ILLNESS: [Pt was admitted with UTI, started on rocephin but according to pt she has no urinary symptoms, instead she came for lower back apin, and she was recently Dx with UTI but has not started her PO meds.]. HOSPITAL COURSE: [Pt was admitted with UTI, but pt very anxious, ssshe wants to leave [place], according to pt her child in this hospital and she can not deal with the memory and will walk out if not discharged, Pt was re assured, advised to stay for a day till culturses are back but she decline. she was given xanax 0.25mg X1 to calm her anxiety, once she calmed down, she was advised take her PO Macrobid and Flagyl as prescribed out pt, and return to ED if fever does not resolve. also she can folloew up her urine CS through her PCP as out pt.Pt was very thankful and was DC home .]. DISCHARGE MEDICATIONS: Please see below. ALLERGIES: Please see below. PHYSICAL EXAMINATION ON DISCHARGE: VITAL SIGNS: Please see below. GENERAL: [WNL] HEENT: [HEENT/MARCUS] NECK: [Supple] CARDIOVASCULAR EXAMINATION: [S1 S2 regular] RESPIRATORY EXAMINATION: [Clear to A&P] ABDOMINAL EXAMINATION: [Soft, NT, BS present] EXTREMITIES: [no CCE] SKIN: [WNL] NEUROLOGICAL EXAMINATION: [No focal deficit] PSYCHIATRIC EXAMINATION: [very anxios] LABORATORY DATA: Please see below. IMAGING: [Renal US: IMPRESSION: 1. 2.7 cm cyst in the right ovary. 2. Kidneys and urinary bladder are unremarkable. ] PROGNOSIS: [Good] ACTIVITY: [As tolerated]. DIET: [as tolerated] DISCHARGE PLAN: [Home] DISPOSITION: .home DISCHARGE INSTRUCTIONS: 1. [as per discharge instructions]. ITEMS TO FOLLOWUP ON ON OUTPATIENT: 1. [F/U with PCP in one week]. DISCHARGE CONDITION: [Stable]. TIME SPENT ON DISCHARGE: 28 minutes. Microbiology Microbiology 02/05/20 Urine Culture - Final, Complete Escherichia Coli Discharge Medications Scheduled Aripiprazole (Aripiprazole) 15 Mg Tablet, 15 MG PO DAILY, (Reported) Metronidazole (Metronidazole) 500 Mg Tablet, 500 MG PO Q8H, (Reported) STARTED 02/05/20 X 10 DAYS Nitrofurantoin Monohyd/M-Cryst (Macrobid 100 mg Capsule) 100 Mg Capsule, 100 MG PO BID Phenazopyridine HCl (Phenazopyridine HCl) 200 Mg Tablet, 200 MG PO TID, (Reported) Allergies Coded Allergies: No Known Allergies (Unverified , 04/22/19) KJ TSE MD Feb 08, 2020 11:42
== END ==
LOC: M LAB REF 14:15
PROVIDERS: ATTEND Physician Assistant
DX: N39.0 Urinary tract infection, site not specified (principal)

== ENCOUNTER 2020-02-07 18:33 | Inpatient (IN) | payer OTHER, MEDICAID ==
[~2020-02-07] VITALS: Ht 152.4 cm; Wt 93.1 kg
[~2020-02-07 18:33] MED LIST changes: -ARIP1TAB10 PO; -CEFP200T PO; -METR-265 PO; -NITR100C2 PO; -PHEN-501 PO
[2020-02-07] MEDS ORDERED: ARIP1TAB10 PO (18:45)
[2020-02-07] MEDS ORDERED: PHEN-501 PO (18:45)
[2020-02-07] MEDS ORDERED: NITR100C2 PO (18:45)
[2020-02-07] MEDS ORDERED: ONDANSETRON 4MG/2ML VIAL IV ONE (20:00)
[2020-02-07] MEDS ORDERED: NS 1,000 ML IV ONE (20:00)
[2020-02-07] MEDS ORDERED: KETOROLAC 30 MG/ML 1ML VIAL IV ONE (20:00)
[2020-02-07 20:41] LABS: BASO # 0.1 10^3/uL (0.0-0.2); BASO % 0.3 % (0.0-1.0); EOS % 0.2 % (0.0-3.0); HEMATOCRIT 38.8 % (36.0-47.0); HEMOGLOBIN 12.5 g/dl (12.0-15.5); LYMPH # 1.5 10^3/uL (1.5-5.0); LYMPH % 7.5 % (24.0-44.0); MEAN CORPUSCULAR HEMOGLOBIN 27.7 pg (27.0-33.0); MEAN CORPUSCULAR HGB CONC 32.2 g/dl (32.0-36.5); MEAN CORPUSCULAR VOLUME 85.8 fl (80.0-96.0); MONO # 1.3 10^3/uL (0.0-0.8); MONO % 6.6 % (0.0-5.0); NEUTROPHILS # 16.7 10^3/uL (1.5-8.5); NEUTROPHILS % 84.5 % (36.0-66.0); PLATELET COUNT, AUTOMATED 271 10^3/uL (150-450); RED BLOOD COUNT 4.52 10^6/uL (4.00-5.40); WHITE BLOOD COUNT 19.7 10^3/uL (4.0-10.0)
[2020-02-07 20:49] LABS: HCG, SERUM QUALITATIVE NEGATIVE (NEGATIVE)
[2020-02-07 20:53] LABS: ALBUMIN 2.7 GM/DL (3.2-5.2); ALT/SGPT 42 U/L (12-78); BILIRUBIN,DIRECT 1.1 MG/DL (0.0-0.2); BILIRUBIN,TOTAL 1.6 MG/DL (0.2-1.0); BLOOD UREA NITROGEN 12 MG/DL (7-18); CALCIUM LEVEL 8.6 MG/DL (8.5-10.1); CARBON DIOXIDE LEVEL 26 MEQ/L (21-32); CHLORIDE LEVEL 104 MEQ/L (98-107); GLUCOSE, FASTING 94 MG/DL (70-100); LIPASE 65 U/L (73-393); POTASSIUM SERUM 3.5 MEQ/L (3.5-5.1); SODIUM LEVEL 139 MEQ/L (136-145); TOTAL PROTEIN 7.1 GM/DL (6.4-8.2)
--- NOTE | 2020-02-07 21:14 | REPVR ---
PROCEDURE INFORMATION: Exam: US Retroperitoneal Limited, Kidneys Exam date and time: 02/07/2020 8:34 PM Age: 19 years old Clinical indication: Abdominal pain; Flank; Other: Bilateral; Additional info: Uti/kidney/fever/n/v R/O pyelonephritis TECHNIQUE: Imaging protocol: Real-time ultrasound of the retroperitoneum with image documentation. Examination was focused on the kidneys. COMPARISON: GALLBLADDER US 08/04/2019 1:12 AM FINDINGS: Right kidney: No stones or masses. No hydronephrosis. Normal cortical echotexture and thickness. Left kidney: No stones or masses. No hydronephrosis. Normal cortical thickness and echotexture. Ovaries: There is a 2.7 cm cyst in the right ovary. No right ovarian mass is seen. Bladder: Urinary bladder is unremarkable. IMPRESSION: 1. 2.7 cm cyst in the right ovary. 2. Kidneys and urinary bladder are unremarkable. Electronically signed by: Kyaw Santiago On 02/07/2020 21:14:18 PM
[2020-02-07] MEDS ORDERED: cefTRIAXone SOD 1 GM in D5W MINI-BAG PLUS 50 ML IV ONE (21:30)
[2020-02-07] MEDS: NS 1,000 ML IV SCH (22:38)
[2020-02-07] MEDS ORDERED: ONDANSETRON 4MG/2ML VIAL IV PRN (23:00)
[2020-02-07] MEDS ORDERED: SODIUM CHLORIDE 0.9% 1000ML IV STA (23:00)
[2020-02-07] MEDS ORDERED: MOM 30ML SUSPENSION UDC PO PRN (23:00)
[2020-02-07] MEDS ORDERED: ACETAMINOPHEN TAB 650MG DOSE (2X325MG) PO PRN (23:00)
--- NOTE | 2020-02-07 23:05 | HPEPDOC ---
[facility] Medical History & Physical Date of Admission Feb 07, 2020 Date of Service: Feb 07, 2020 Primary Care Physician: A Other Provider [place] Attending Physician: MANPREET CALERO MD History and Physical TIME OF SERVICE: 1050PM CHIEF COMPLAINT: back pain HISTORY OF PRESENT ILLNESS: This 19 yr old F presented w c/o 1 week in duration right sided relapsing and remitting cramping back pain associated with a change in the smell of the urine, nausea, vomiting, fevers and chills. She was started on macrobid and pyridum on Mon but her symptoms persisted. REVIEW OF SYSTEMS: 12 point review of systems negative except as listed in HPI PAST MEDICAL/ SURGICAL HISTORY: Bipolar Disorder SOCIAL HISTORY: + Tobacco / + alcohol socially / - drugs FAMILY HISTORY: Asthma ALLERGIES: Please see below. HOME MEDICATIONS: Please see below. PHYSICAL EXAMINATION: Vital Signs Date Time Temp Pulse Resp B/P (MAP) Pulse Ox O2 Delivery O2 Flow Rate FiO2 02/07/20 18:33 96.6 128 18 165/81 (109) 92 Room Air GENERAL APPEARANCE: obese /not toxic HEENT: EOMI /no conjunctival injection CARDIOVASCULAR: RRR/NMRG LUNGS: CTAB on RA ABDOMEN: obese / soft & NT MUSCULOSKELETAL: CRISTIAN x 4 / no CVA tenderness INTEGUMENT: no diaphoresis or skin flushing NEUROLOGICAL: CN 2-12 intact PSYCHIATRIC: A&Ox 3 LABORATORY DATA: 02/07/20 20:08 Immature Granulocyte % (Auto) 0.9, Neutrophils (%) (Auto) 84.5H, Lymphocytes (%) (Auto) 7.5L, Monocytes (%) (Auto) 6.6H, Eosinophils (%) (Auto) 0.2, Basophils (%) (Auto) 0.3, Neutrophils # (Auto) 16.7H, Lymphocytes # (Auto) 1.5, Monocytes # (Auto) 1.3H, Eosinophils # (Auto) 0.0, Basophils # (Auto) 0.1, Nucleated Red Blood Cells % (auto) 0.0, Anion Gap 9, Lactic Acid Level 1.9, Calcium Level 8.6, Total Bilirubin 1.6H, Direct Bilirubin 1.1H, Aspartate Amino Transf (AST/SGOT) 47H, Alanine Aminotransferase (ALT/SGPT) 42, Alkaline Phosphatase 148H, Total Protein 7.1, Albumin 2.7L, Albumin/Globulin Ratio 0.6L, Lipase 65L, Human Chorionic Gonadotropin, Qual NEGATIVE 02/07/20 22:31: Urine Color SHIV, Urine Appearance CLOUDYH, Urine pH 5.0, Urine Specific [place] 1.020, Urine Protein 2+H, Urine Glucose (UA) 1+H, Urine Ketones NEGATIVE, Urine Blood NEGATIVE, Urine Nitrite POSITIVEH, Urine Bilirubin NEGATIVE, Urine Urobilinogen 4.0H, Urine Leukocyte Esterase TRACEH, Urine WBC (Auto) 132H, Urine RBC (Auto) 24H, Urine Hyaline Casts (Auto) 0, Urine Bacteria (Auto) 1+H, Urine Squamous Epithelial Cells 5, Urine Transitional Epithelial Cells <1, Urine Amorphous Sediment SMALLH, Urine Mucus (Auto) SMALL, Urine Sperm (Auto) IMAGING: Renal US IMPRESSION: 1. 2.7 cm cyst in the right ovary. 2. Kidneys and urinary bladder are unremarkable. MICROBIOLOGY: 02/07/20 Urine Culture, Received Pending ASSESSMENT: is a 19 yr old who will be admitted for sepsis 2/2 UTI. PLAN: 1. Sepsis 2/2 Cystitis w hematuria SIRS criterial include fever, tachycardia and leukocytosis Plan: admit to medical floor / c/w IVF, ceftriaxone pending UCx and blood cx 2. RITO Renal US as above Plan: IVF/ Ulytes for FEna 3. N/V Plan: Zofran 4. Transaminitis [place] 2/2 fatty liver Plan: f/u w PCP for US & Hep panel on out pt basis 5. Tobacco Abuse Plan: smoking cessation education 6. Bipolar Disorder Plan: c/w aripirazole 7. Obesity BMI 40 complicates care Plan: f/u A1C to screen for DM DVT Px w SCDs Dispo: home after more than 2 midnights stay Home Medications Scheduled Aripiprazole (Aripiprazole) 15 Mg Tablet, 15 MG PO DAILY Metronidazole (Metronidazole) 500 Mg Tablet, 500 MG PO Q8H STARTED 02/05/20 X 10 DAYS Nitrofurantoin Monohyd/M-Cryst (Nitrofurantoin [place]-Mcr 100 mg) 100 Mg Capsule, 100 MG PO BID STARTED 02/05/20 X 7 DAYS Phenazopyridine HCl (Phenazopyridine HCl) 200 Mg Tablet, 200 MG PO TID Allergies Coded Allergies: No Known Allergies (Unverified , 04/22/19) A-FIB/CHADSVASC A-FIB History Current/History of A-Fib/PAF?: No Current PO Anticoag Therapy: No MANPREET CALERO MD Feb 07, 2020 23:05
[2020-02-07] MEDS ORDERED: METR-265 PO (23:11)
[2020-02-08 00:40] VITALS: BP 108/64
[2020-02-08] MEDS ORDERED: CALCIUM CARBONATE 500 MG CHEW U/D PO ONE (02:00)
[2020-02-08] MEDS: NS 1,000 ML IV SCH (03:27)
[2020-02-08 04:00] VITALS: BP 108/64
[2020-02-08 06:00] VITALS: BP 107/63
[2020-02-08 06:20] LABS: HEMATOCRIT 30.2 % (36.0-47.0); HEMOGLOBIN 9.9 g/dl (12.0-15.5); MEAN CORPUSCULAR HEMOGLOBIN 28.2 pg (27.0-33.0); MEAN CORPUSCULAR HGB CONC 32.8 g/dl (32.0-36.5); PLATELET COUNT, AUTOMATED 210 10^3/uL (150-450); RED BLOOD COUNT 3.51 10^6/uL (4.00-5.40); WHITE BLOOD COUNT 16.4 10^3/uL (4.0-10.0)
[2020-02-08 06:37] LABS: BLOOD UREA NITROGEN 12 MG/DL (7-18); CALCIUM LEVEL 7.2 MG/DL (8.5-10.1); CARBON DIOXIDE LEVEL 24 MEQ/L (21-32); CHLORIDE LEVEL 111 MEQ/L (98-107); CREATININE FOR GFR 1.11 MG/DL (0.55-1.30); GLUCOSE, FASTING 105 MG/DL (70-100); MAGNESIUM LEVEL 2.2 MG/DL (1.8-2.4); POTASSIUM SERUM 3.4 MEQ/L (3.5-5.1); SODIUM LEVEL 142 MEQ/L (136-145)
[2020-02-08] MEDS ORDERED: ENOXAPARIN 40MG/0.4ML SYRINGE (J1650 PER 10MG) SC SCH (09:00)
[2020-02-08] MEDS ORDERED: ARIPiprazole 15 MG TAB (AbiLIFY) PO SCH (09:00)
[2020-02-08] MEDS ORDERED: CEFP200T PO (09:32)
[2020-02-08] MEDS ORDERED: ALPRAZolam 0.25 MG TAB PO ONE (10:00)
[2020-02-08] MEDS ORDERED: CEFEPIME HCL 2 GM in D5W 50 ML IV SCH (10:00)
[2020-02-08 10:03] LABS: HEMOGLOBIN A1c 5.6 %
[2020-02-08] MEDS ORDERED: MACR100C43 PO (10:05)
== END 2020-02-08 10:18 | disposition home or self-care (01) | DRG 872 ==
LOC: M ED 18:33 → M ED INP 23:00 → ENRESERV 23:20 → M MSPAV 02-08 00:37
PROVIDERS: ADMIT Internal Medicine; ATTEND Internal Medicine
DX: A41.9 Sepsis, unspecified organism (principal); N17.9 Acute kidney failure, unspecified; N30.01 Acute cystitis with hematuria; Z68.41 Body mass index [BMI] 40.0-44.9, adult; F17.200 Nicotine dependence, unspecified, uncomplicated; F31.9 Bipolar disorder, unspecified; E66.9 Obesity, unspecified; Z79.899 Other long term (current) drug therapy

== ENCOUNTER → 2020-03-17 | Outpatient (REF) | payer OTHER, MEDICAID ==
[~2020-03-17] MED LIST changes: +ARIP1TAB10 PO; +CEFP200T PO; +METR-265 PO; +NITR100C2 PO; +PHEN-501 PO
[2020-03-17 18:55] LABS: HCG, SERUM QUALITATIVE NEGATIVE (NEGATIVE)
== END ==
LOC: M LAB REF 17:54
PROVIDERS: ATTEND Physician Assistant Medical
DX: Z32.00 Encounter for pregnancy test, result unknown (principal)

== ENCOUNTER 2020-04-02 23:20 | Emergency (ER) | payer OTHER, MEDICAID ==
[~2020-04-02] VITALS: Ht 152.4 cm; Wt 96.6 kg
[2020-04-02 23:22] VITALS: BP 136/101
[2020-04-03 00:26] LABS: BASO # 0.1 10^3/uL (0.0-0.2); BASO % 0.5 % (0.0-1.0); EOS # 0.4 10^3/uL (0.0-0.5); EOS % 2.9 % (0.0-3.0); HEMATOCRIT 41.3 % (36.0-47.0); HEMOGLOBIN 13.2 g/dl (12.0-15.5); LYMPH # 2.9 10^3/uL (1.5-5.0); MEAN CORPUSCULAR HEMOGLOBIN 27.4 pg (27.0-33.0); MEAN CORPUSCULAR VOLUME 85.9 fl (80.0-96.0); MONO # 0.6 10^3/uL (0.0-0.8); MONO % 4.8 % (0.0-5.0); NEUTROPHILS # 8.2 10^3/uL (1.5-8.5); NEUTROPHILS % 67.6 % (36.0-66.0); PLATELET COUNT, AUTOMATED 300 10^3/uL (150-450); RED BLOOD COUNT 4.81 10^6/uL (4.00-5.40); WHITE BLOOD COUNT 12.2 10^3/uL (4.0-10.0)
[2020-04-03 00:43] LABS: BLOOD UREA NITROGEN 12 MG/DL (7-18); CALCIUM LEVEL 8.9 MG/DL (8.5-10.1); CARBON DIOXIDE LEVEL 26 MEQ/L (21-32); CHLORIDE LEVEL 107 MEQ/L (98-107); CREATININE FOR GFR 0.76 MG/DL (0.55-1.30); GLUCOSE, FASTING 106 MG/DL (70-100); POTASSIUM SERUM 3.8 MEQ/L (3.5-5.1); SODIUM LEVEL 139 MEQ/L (136-145)
== END 2020-04-03 00:49 | disposition home or self-care (01) ==
LOC: M ED 23:20
DX: Z71.1 Person with feared health complaint in whom no diagnosis is made (principal)

== ENCOUNTER 2020-08-10 21:45 | Emergency (ER) | payer MEDICAID, OTHER ==
[~2020-08-10] VITALS: Ht 152.4 cm; Wt 96.4 kg
[2020-08-10] MEDS ORDERED: IBUP1TAB5 PO (21:50)
[2020-08-10] MEDS ORDERED: NS 1,000 ML IV ONE (22:20)
[2020-08-10 22:33] LABS: BASO # 0.1 10^3/uL (0.0-0.2); BASO % 0.5 % (0.0-1.0); EOS # 0.2 10^3/uL (0.0-0.5); EOS % 2.2 % (0.0-3.0); HEMATOCRIT 41.9 % (36.0-47.0); HEMOGLOBIN 13.2 g/dl (12.0-15.5); LYMPH # 2.5 10^3/uL (1.5-5.0); LYMPH % 22.7 % (24.0-44.0); MEAN CORPUSCULAR HEMOGLOBIN 26.4 pg (27.0-33.0); MEAN CORPUSCULAR HGB CONC 31.5 g/dl (32.0-36.5); MEAN CORPUSCULAR VOLUME 83.8 fl (80.0-96.0); MONO # 0.6 10^3/uL (0.0-0.8); MONO % 5.4 % (2.0-8.0); NEUTROPHILS # 7.5 10^3/uL (1.5-8.5); NEUTROPHILS % 68.8 % (36.0-66.0); PLATELET COUNT, AUTOMATED 293 10^3/uL (150-450); WHITE BLOOD COUNT 10.9 10^3/uL (4.0-10.0)
[2020-08-10 23:11] LABS: ALBUMIN 3.8 GM/DL (3.2-5.2); BILIRUBIN,DIRECT 0.2 MG/DL (0.0-0.2); BILIRUBIN,TOTAL 0.8 MG/DL (0.2-1.0); TOTAL PROTEIN 7.9 GM/DL (6.4-8.2)
[2020-08-10] MEDS ORDERED: KETOROLAC 30 MG/ML 1ML VIAL IV ONE (23:20)
[2020-08-11 00:04] VITALS: BP 110/70
== END 2020-08-11 00:15 | disposition home or self-care (01) ==
LOC: M ED 21:45
DX: M54.5 Low back pain (principal); R51.9 Headache, unspecified; R19.7 Diarrhea, unspecified; R10.9 Unspecified abdominal pain; K21.9 Gastro-esophageal reflux disease without esophagitis; F60.3 Borderline personality disorder; F41.9 Anxiety disorder, unspecified; F32.9 Major depressive disorder, single episode, unspecified; Z87.59 Personal history of other complications of pregnancy, childbirth and the puerperium; Z87.891 Personal history of nicotine dependence
CPT/HCPCS: 80047; 80076; 81001; 83690; 84702; 85025; 87086; 96361; 96374; 99284; J1885

== ENCOUNTER 2020-10-18 21:09 | Emergency (ER) | payer MEDICAID ==
[~2020-10-18] VITALS: Ht 152.4 cm; Wt 102.1 kg
[~2020-10-18 21:09] MED LIST changes: +EMTR1TAB16 PO; +IBUP1TAB5 PO; -SIME180C PO; +SIME180C25 PO; -TRUVTAB PO
[2020-10-18] MEDS ORDERED: FLAG500T PO (23:57)
[2020-10-19] MEDS ORDERED: metroNIDAZOLE (FLAGYL) 500MG TABLET PO ONE
[2020-10-19 00:07] VITALS: BP 140/82
== END 2020-10-19 00:11 | disposition home or self-care (01) ==
LOC: M ED 21:09
DX: N76.0 Acute vaginitis (principal); Z86.19 Personal history of other infectious and parasitic diseases; F17.200 Nicotine dependence, unspecified, uncomplicated

== ENCOUNTER → 2020-11-07 | Outpatient (REF) | payer MEDICAID ==
[2020-11-07 14:08] LABS: APPEARANCE, URINE CLOUDY (CLEAR); BACTERIA, URINE AUTO 1+ (NEGATIVE); BILIRUBIN, URINE AUTO NEGATIVE (NEGATIVE); BLOOD, URINE BLOOD NEGATIVE (NEGATIVE); COLOR, URINE YELLOW (YELLOW); GLUCOSE, URINE (UA) AUTO NEGATIVE (NEGATIVE); KETONE, URINE AUTO NEGATIVE (NEGATIVE); LEUKOCYTE ESTERASE, URINE AUTO 2+ (NEGATIVE); MUCUS, URINE SMALL (NEGATIVE); NITRITE, URINE AUTO NEGATIVE (NEGATIVE); PROTEIN, URINE AUTO 1+ mg/dL (NEGATIVE); RBC, URINE AUTO 5 /HPF (0-3); SPECIFIC GRAVITY URINE AUTO 1.025 (1.002-1.035); SQUAMOUS EPITHELIAL CELL UR AU 28 /HPF (0-6); WBC, URINE AUTO 5 /HPF (0-3)
[2020-11-07 14:09] LABS: URINE PREG TEST NEGATIVE (NEGATIVE)
== END ==
LOC: M LAB REF 13:39
PROVIDERS: ATTEND Physician Assistant Medical
DX: R30.0 Dysuria (principal)

== ENCOUNTER → 2020-12-06 | Outpatient (REF) | payer OTHER ==
[~2020-12-06] MED LIST changes: +ARIP10TA32; -ARIP1TAB; +OMEP40CA4 PO; -OMEP40CA97 PO
== END ==
LOC: M LAB REF 19:52
PROVIDERS: ATTEND Physician Assistant
DX: R11.0 Nausea (principal)

== ENCOUNTER → 2020-12-07 | Outpatient (REF) | payer OTHER | LOC: M WUC 10:23 | PROVIDERS: ATTEND Physician Assistant | DX: R11.0 Nausea (principal) ==

== ENCOUNTER 2021-01-12 10:14 | Emergency (ER) | payer OTHER ==
[~2021-01-12] VITALS: Ht 152.4 cm; Wt 95.5 kg
[2021-01-12] MEDS ORDERED: ARIP1TAB10 (10:22)
[2021-01-12] MEDS ORDERED: IBUPROFEN 600MG TAB PO ONE (12:10)
[2021-01-12 13:25] LABS: URINE PREG TEST NEGATIVE (NEGATIVE)
[2021-01-12 13:36] VITALS: BP 135/77
== END 2021-01-12 13:38 | disposition home or self-care (01) ==
LOC: M ED 10:14
DX: S39.012A Strain of muscle, fascia and tendon of lower back, initial encounter (principal); X58.XXXA Exposure to other specified factors, initial encounter; Y92.9 Unspecified place or not applicable; Y93.9 Activity, unspecified; Y99.9 Unspecified external cause status; K31.9 Disease of stomach and duodenum, unspecified; K21.9 Gastro-esophageal reflux disease without esophagitis; Z87.448 Personal history of other diseases of urinary system; G43.909 Migraine, unspecified, not intractable, without status migrainosus; F17.290 Nicotine dependence, other tobacco product, uncomplicated; Z79.899 Other long term (current) drug therapy

== ENCOUNTER 2021-02-28 22:40 | Emergency (ER) | payer OTHER ==
[~2021-02-28] VITALS: Ht 152.4 cm; Wt 101.0 kg
[2021-02-28 22:40] VITALS: BP 133/81
[~2021-02-28 22:40] MED LIST changes: +ARIP1TAB10
[2021-03-01] MEDS ORDERED: TRUVADA 200MG/300MG TABLET PO SCH
[2021-03-01] MEDS ORDERED: RALTEGRAVIR 400 MG TAB (ISENTRESS) PO SCH
[2021-03-01] MEDS ORDERED: LIDOCAINE 1% SDV 5ML VIAL DILUENT ONE (01:00)
[2021-03-01] MEDS ORDERED: cefTRIAXone SOD 250MG VIAL (J0696 PER 250MG) IM ONE (01:00)
[2021-03-01] MEDS ORDERED: EXPOSURE KIT-ADULT 7 DAY SUPPLY PO ONE (01:00)
[2021-03-01] MEDS ORDERED: DOXYCYCLINE HYCLATE 100MG TABLET PO ONE (01:00)
[2021-03-01] MEDS ORDERED: metroNIDAZOLE (FLAGYL) 500MG TABLET PO ONE (01:00)
[2021-03-01] MEDS ORDERED: RALTEGRAVIR 400 MG TAB (ISENTRESS) PO ONE (01:30)
[2021-03-01] MEDS ORDERED: TRUVADA 200MG/300MG TABLET PO ONE (01:30)
[2021-03-01] MEDS ORDERED: ONDANSETRON 4 MG ORAL DISINTEGRATING TAB PO ONE (02:00)
[2021-03-01] MEDS ORDERED: AZITHROMYCIN 250MG TABLET PO ONE (02:00)
[2021-03-01 02:09] LABS: BASO # 0.1 10^3/uL (0.0-0.2); BASO % 0.5 % (0.0-1.0); EOS # 0.3 10^3/uL (0.0-0.5); HEMATOCRIT 41.3 % (36.0-47.0); HEMOGLOBIN 13.4 g/dl (12.0-15.5); LYMPH # 2.5 10^3/uL (1.5-5.0); LYMPH % 17.5 % (24.0-44.0); MEAN CORPUSCULAR HEMOGLOBIN 27.8 pg (27.0-33.0); MEAN CORPUSCULAR HGB CONC 32.4 g/dl (32.0-36.5); MEAN CORPUSCULAR VOLUME 85.7 fl (80.0-96.0); MONO # 0.6 10^3/uL (0.0-0.8); NEUTROPHILS % 75.6 % (36.0-66.0); PLATELET COUNT, AUTOMATED 270 10^3/uL (150-450); RED BLOOD COUNT 4.82 10^6/uL (4.00-5.40); WHITE BLOOD COUNT 14.5 10^3/uL (4.0-10.0)
[2021-03-01] MEDS ORDERED: EMTR1TAB16 PO (02:24)
[2021-03-01] MEDS ORDERED: RALT40TA PO (02:24)
[2021-03-01 02:38] LABS: ALBUMIN 3.4 GM/DL (3.2-5.2); ALT/SGPT 29 U/L (12-78); BILIRUBIN,TOTAL 0.4 MG/DL (0.2-1.0); BLOOD UREA NITROGEN 9 MG/DL (7-18); CALCIUM LEVEL 9.1 MG/DL (8.5-10.1); CARBON DIOXIDE LEVEL 29 MEQ/L (21-32); CHLORIDE LEVEL 108 MEQ/L (98-107); CREATININE FOR GFR 0.64 MG/DL (0.55-1.30); GLOMERULAR FILTRATION RATE > 60.0 (>60); GLUCOSE, FASTING 95 MG/DL (70-100); POTASSIUM SERUM 4.3 MEQ/L (3.5-5.1); SODIUM LEVEL 143 MEQ/L (136-145); TOTAL PROTEIN 7.1 GM/DL (6.4-8.2)
[2021-03-01 02:41] LABS: HCG, SERUM QUALITATIVE NEGATIVE (NEGATIVE)
== END 2021-03-01 02:54 | disposition home or self-care (01) ==
LOC: M ED 22:40
DX: T74.21XA Adult sexual abuse, confirmed, initial encounter (principal); Y92.009 Unspecified place in unspecified non-institutional (private) residence as the place of occurrence of the external cause; Y93.9 Activity, unspecified; Y99.9 Unspecified external cause status
CPT/HCPCS: 36415; 80053; 84703; 85025; 99284; J0696; Q0162

== ENCOUNTER 2021-03-06 21:22 | Emergency (ER) | payer OTHER ==
[~2021-03-06] VITALS: Ht 152.4 cm; Wt 102.4 kg
[2021-03-06] MEDS ORDERED: ONDANSETRON 4 MG ORAL DISINTEGRATING TAB PO ONE (22:05)
[2021-03-06 22:25] LABS: BASO # 0.1 10^3/uL (0.0-0.2); BASO % 0.5 % (0.0-1.0); EOS # 0.4 10^3/uL (0.0-0.5); EOS % 3.2 % (0.0-3.0); HEMATOCRIT 39.6 % (36.0-47.0); HEMOGLOBIN 12.9 g/dl (12.0-15.5); LYMPH # 3.2 10^3/uL (1.5-5.0); LYMPH % 26.3 % (24.0-44.0); MEAN CORPUSCULAR HEMOGLOBIN 27.5 pg (27.0-33.0); MEAN CORPUSCULAR HGB CONC 32.6 g/dl (32.0-36.5); MEAN CORPUSCULAR VOLUME 84.4 fl (80.0-96.0); MONO # 0.5 10^3/uL (0.0-0.8); MONO % 4.3 % (2.0-8.0); NEUTROPHILS % 65.1 % (36.0-66.0); PLATELET COUNT, AUTOMATED 285 10^3/uL (150-450); RED BLOOD COUNT 4.69 10^6/uL (4.00-5.40); WHITE BLOOD COUNT 12.3 10^3/uL (4.0-10.0)
[2021-03-06 22:55] LABS: ALBUMIN 3.5 GM/DL (3.2-5.2); ALT/SGPT 38 U/L (12-78); BILIRUBIN,DIRECT < 0.1 MG/DL (0.0-0.2); BILIRUBIN,TOTAL 0.3 MG/DL (0.2-1.0); BLOOD UREA NITROGEN 8 MG/DL (7-18); CALCIUM LEVEL 8.8 MG/DL (8.5-10.1); CARBON DIOXIDE LEVEL 26 MEQ/L (21-32); CHLORIDE LEVEL 107 MEQ/L (98-107); CREATININE FOR GFR 0.72 MG/DL (0.55-1.30); GLOMERULAR FILTRATION RATE > 60.0 (>60); GLUCOSE, FASTING 91 MG/DL (70-100); POTASSIUM SERUM 3.8 MEQ/L (3.5-5.1); SODIUM LEVEL 141 MEQ/L (136-145); TOTAL PROTEIN 6.9 GM/DL (6.4-8.2)
[2021-03-06] MEDS ORDERED: ONDA4TAB6 PO (23:40)
[2021-03-06] MEDS ORDERED: DIFL150T PO (23:40)
[2021-03-07 00:01] VITALS: BP 124/78
== END 2021-03-07 00:07 | disposition home or self-care (01) ==
LOC: M ED 21:22
DX: R11.2 Nausea with vomiting, unspecified (principal); R19.7 Diarrhea, unspecified; F60.3 Borderline personality disorder; N76.0 Acute vaginitis; Z79.899 Other long term (current) drug therapy
CPT/HCPCS: 36415; 80048; 80076; 81001; 84702; 85025; 87088; 99283; Q0162

== ENCOUNTER 2021-04-02 15:53 | Emergency (ER) | payer OTHER, SELFPAY ==
[~2021-04-02] VITALS: Ht 152.4 cm; Wt 95.5 kg
[~2021-04-02 15:53] MED LIST changes: +DIFL150T PO; +ONDA4TAB6 PO
[2021-04-02 15:54] VITALS: BP 127/73
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
--- OUTSIDE RECORDS SUMMARY | 2021-04-02 15:59 | CCD ---
Author Author [facility] Organization [facility] Address Unknown Phone Unavailable Care Team Providers Care Occupational Psychologist Name Role Phone Sunshine Menard Unavailable Unavailable Allison, Billie Unavailable Unavailable Allison, Billie Unavailable Unavailable Allison, Billie Unavailable Unavailable Allison, Billie Unavailable Unavailable Allison, Billie Unavailable Unavailable Allison, Billie Unavailable Unavailable Allison, Billie Unavailable Unavailable Allison, Billie Unavailable Unavailable Allison, Billie Unavailable Unavailable Allison, Billie Unavailable Unavailable Allison, Billie Unavailable Unavailable Allison, Billie Unavailable Unavailable Allison, Billie Unavailable Unavailable Allison, Billie Unavailable Unavailable Allison, Billie Unavailable Unavailable Allison, Billie Unavailable Unavailable Allison, Billie Unavailable Unavailable Allison, Billie Unavailable Unavailable Allison, Billie Unavailable Unavailable Allison, Billie Unavailable Unavailable Allison, Billie Unavailable Unavailable Allison, Billie Unavailable Unavailable Allison, Billie Unavailable Unavailable Allison, Billie Unavailable Unavailable Allison, Billie Unavailable Unavailable Allison, Billie Unavailable Unavailable MIS, PROSPER PA Unavailable Unavailable MIS, PROSPER PA Unavailable Unavailable MIS, PROSPER PA Unavailable Unavailable MIS, PROSPER PA Unavailable Unavailable MIS, PROSPER PA Unavailable Unavailable MIS, PROSPER PA Unavailable Unavailable MIS, PROSPER PA Unavailable Unavailable MIS, PROSPER PA Unavailable Unavailable MIS, PROSPER PA Unavailable Unavailable MIS, PROSPER PA Unavailable Unavailable MIS, PROSPER PA Unavailable Unavailable MIS, PROSPER PA Unavailable Unavailable MIS, PROSPER PA Unavailable Unavailable MIS, PROSPER PA Unavailable Unavailable MIS, PROSPER PA Unavailable Unavailable MIS, PROSPER PA Unavailable Unavailable MIS, PROSPER PA Unavailable Unavailable MIS, PROSPER PA Unavailable Unavailable MIS, PROSPER PA Unavailable Unavailable MIS, PROSPER PA Unavailable Unavailable MIS, PROSPER PA Unavailable Unavailable MIS, PROSPER PA Unavailable Unavailable MIS, PROSPER PA Unavailable Unavailable MIS, PROSPER PA Unavailable Unavailable MIS, PROSPER PA Unavailable Unavailable MIS, PROSPER PA Unavailable Unavailable MIS, PROSPER PA Unavailable Unavailable MIS, PROSPER PA Unavailable Unavailable MIS, PROSPER PA Unavailable Unavailable MIS, PROSPER PA Unavailable Unavailable MIS, PROSPER PA Unavailable Unavailable MIS, PROSPER PA Unavailable Unavailable MIS, PROSPER PA Unavailable Unavailable MIS, PROSPER PA Unavailable Unavailable MIS, PROSPER PA Unavailable Unavailable MIS, PROSPER PA Unavailable Unavailable JABIER, H HIRAM TRANSITIONS MANAGER Unavailable Unavailable JABIER, H HIRAM TRANSITIONS MANAGER Unavailable Unavailable JABIER, H HIRAM TRANSITIONS MANAGER Unavailable Unavailable JABIER, H HIRAM TRANSITIONS MANAGER Unavailable Unavailable JABIER, H HIRAM TRANSITIONS MANAGER Unavailable Unavailable JABIER, H HIRAM TRANSITIONS MANAGER Unavailable Unavailable JABIER, H HIRAM TRANSITIONS MANAGER Unavailable Unavailable JABIER, H HIRAM TRANSITIONS MANAGER Unavailable Unavailable JABIER, H HIRAM TRANSITIONS MANAGER Unavailable Unavailable Lexie Preciado Unavailable Jessica Hernandez MD Unavailable Unavailable Jessica Hernandez MD Unavailable Unavailable Jessica Hernandez MD Unavailable Unavailable Jessica Hernandez MD Unavailable Unavailable Jessica Hernandez MD Unavailable Unavailable Jessica Hernandez MD Unavailable Unavailable Jessica Hernandez MD Unavailable Unavailable Jessica Hernandez MD Unavailable Unavailable Jessica Hernandez MD Unavailable Unavailable Jessica Hernandez MD Unavailable Unavailable Jessica Hernandez MD Unavailable Unavailable Jessica Hernandez MD Unavailable Unavailable Jessica Hernandez MD Unavailable Unavailable Jessica Hernandez MD Unavailable Unavailable Jessica Hernandez MD Unavailable Unavailable Jessica Hernandez MD Unavailable Unavailable Jessica Hernandez MD Unavailable Unavailable Jessica Hernandez MD Unavailable Unavailable Jessica Hernandez MD Unavailable Unavailable Jessica Hernandez MD Unavailable Unavailable Jessica Hernandez MD Unavailable Unavailable Jessica Hernandez MD Unavailable Unavailable Jessica Hernandez MD Unavailable Unavailable Jessica Hernandez MD Unavailable Unavailable Jessica Hernandez MD Unavailable Unavailable Jessica Hernandez MD Unavailable Unavailable Jessica Hernandez MD Unavailable Unavailable Jessica Hernandez MD Unavailable Unavailable Jessica Hernandez MD Unavailable Unavailable Jessica Hernandez MD Unavailable Unavailable Jessica Hernandez MD Unavailable Unavailable Jessica Hernandez MD Unavailable Unavailable Jessica Hernandez MD Unavailable Unavailable Jessica Hernandez MD Unavailable Unavailable Jessica Hernandez MD Unavailable Unavailable Jessica Hernandez MD Unavailable Unavailable Jessica Hernandez MD Unavailable Unavailable Jessica Hernandez MD Unavailable Unavailable Jessica Hernandez MD Unavailable Unavailable Jessica Hernandez MD Unavailable Unavailable Jessica Hernandez MD Unavailable Unavailable Jessica Hernandez MD Unavailable Unavailable Jessica Hernandez MD Unavailable Unavailable Jessica Hernandez MD Unavailable Unavailable Jessica Hernandez MD Unavailable Unavailable Jessica Hernandez MD Unavailable Unavailable Jessica Hernandez MD Unavailable Unavailable Jessica Hernandez MD Unavailable Unavailable Jessica Hernandez MD Unavailable Unavailable Jessica Hernandez MD Unavailable Unavailable Jessica Hernandez MD Unavailable Unavailable Jessica Hernandez MD Unavailable Unavailable Jessica Hernandez MD Unavailable Unavailable Jessica Hernandez MD Unavailable Unavailable Jessica Hernandez MD Unavailable Unavailable Jessica Hernandez MD Unavailable Unavailable Jessica Hernandez MD Unavailable Unavailable Jessica Hernandez MD Unavailable Unavailable Jessica Hernandez MD Unavailable Unavailable Jessica Hernandez MD Unavailable Unavailable Jessica Hernandez MD Unavailable Unavailable Jessica Hernandez MD Unavailable Unavailable Jessica Hernandez MD Unavailable Unavailable Jessica Hernandez MD Unavailable Unavailable Jessica Hernandez MD Unavailable Unavailable Jessica Hernandez MD Unavailable Unavailable Jessica Hernandez MD Unavailable Unavailable Jessica Hernandez MD Unavailable Unavailable Jessica Hernandez MD Unavailable Unavailable Jessica Hernandez MD Unavailable Unavailable HernandezJessica MD Unavailable Unavailable HernandezJessica MD Unavailable Unavailable Hernandez, Jessica Ochoa MD Unavailable Unavailable Hernandez, D Don MD Unavailable Unavailable Hernandez, D Don MD Unavailable Unavailable Hernandez, D Don MD Unavailable Unavailable Hernandez, D Don MD Unavailable Unavailable Hernandez, D Don MD Unavailable Unavailable Hernandez, D Don MD Unavailable Unavailable Hernandez, D Don MD Unavailable Unavailable Hernandez, D Don MD Unavailable Unavailable Hernandez, D Don MD Unavailable Unavailable Hernandez, D Don MD Unavailable Unavailable Hernandez, D Don MD Unavailable Unavailable Hernandez, D Don MD Unavailable Unavailable Hernandez, D Don MD Unavailable Unavailable Hernandez, D Don MD Unavailable Unavailable Hernandez, D Don MD Unavailable Unavailable Hernandez, D Don MD Unavailable Unavailable Hernandez, D Don MD Unavailable Unavailable Hernandez, D Don MD Unavailable Unavailable Hernandez, D Don MD Unavailable Unavailable Hernandez, D Don MD Unavailable Unavailable Lucila Harris Unavailable Lucila Harris Unavailable Tali Villagomez Unavailable Re-disclosure Warning The records that you are about to access may contain information from federally-assisted alcohol or drug abuse programs. If such information is present, then the following federally mandated warning applies: This information has been disclosed to you from records protected by federal confidentiality rules (42 CFR part 2). The federal rules prohibit you from making any further disclosure of this information unless further disclosure is expressly permitted by the written consent of the person to whom it pertains or as otherwise permitted by 42 CFR part 2. A general authorization for the release of medical or other information is NOT sufficient for this purpose. The Federal rules restrict any use of the information to criminally investigate or prosecute any alcohol or drug abuse patient.The records that you are about to access may contain highly sensitive health information, the redisclosure of which is protected by Article 27-F of the [facility] Public Health law. If you continue you may have access to information: Regarding HIV / AIDS; Provided by facilities licensed or operated by the [facility] Office of Mental Health; or Provided by the [facility] Office for People With Developmental Disabilities. If such information is present, then the following [facility] mandated warning applies: This information has been disclosed to you from confidential records which are protected by state law. State law prohibits you from making any further disclosure of this information without the specific written consent of the person to whom it pertains, or as otherwise permitted by law. Any unauthorized further disclosure in violation of state law may result in a fine or fpc sentence or both. A general authorization for the release of medical or other information is NOT sufficient authorization for further disc losure. Family History Family Member Name Family Member Gender Family Member Status Date o f Status Description Data Source(s) Unknown Unknown Problem MEDENT ([facility], [facility]) Unknown Unknown Problem MEDENT ([facility]) Encounters Encounter Providers Location Date Indications Data Source(s ) Unknown [id number] [facility] [address] 03/16/2021 12:00:00 AM EDT eCW1 ([facility]) Lucila Harris [facility]: [address] [place] [address], Ph. Attender: Lucila Harris [facility] Medical 03/09/2021 12:00:00 AM EDT [facility] ([facility]) Valeria Cooper MD: [address] [facility] [place] [address], Ph. Attender: Valeria Cooper [facility] Medical 03/09/2021 12:00:00 AM EDT [place] ([facility]) Lucila Harris LMSW: [address] [place] [address], Ph. Attender: Lucila Harris [facility] Medical 03/09/2021 12:00:00 AM EDT [place] ([facility]) Valeria Cooper MD: [address], [place] [address], Ph. Attender: Valeria Cooper [facility] Medical 03/09/2021 12:00:00 AM EDT [place] ([facility]) Valeria Cooper MD: [address] [place] [address], Ph. Attender: Valeria Cooper [facility] Medical 03/09/2021 12:00:00 AM EDT [place] ([facility]) Outpatient Attender: PROSPER bronson 12/06/2020 12:05:00 PM EDT MEDENT ([facility], [facility]) Extended Individual Psychotherapy - 45 min Attender: Tali Villagomez [facility] 11/05/2020 03:00:00 AM EDT - 11/05/2020 03:00:00 AM EDT [facility] ([facility]) Attender: Tali Villagomez 11/05/2020 12:00:00 AM EDT [facility] ([facility]) Outpatient [id number] [facility] [address] 10/13/2020 12:00:00 AM EDT eCW1 ([facility]) Extended Individual Psychotherapy - 45 min Attender: Tali Villagomez [facility] 10/08/2020 10:00:00 AM EDT - 10/08/2020 10:00:00 AM EDT [facility] ([facility] Attender: Tali Villagomez 10/08/2020 12:00:00 AM EDT [facility] ([facility]) Valeria Cooper MD: [address] [place] [address], Ph. Attender: Valeria Cooper [facility] Medical 09/18/2020 12:00:00 AM EDT [place] ([facility]) Valeria Cooper MD: [address] [place] [address], Ph. Attender: Valeria Cooper [facility] Medical 09/18/2020 12:00:00 AM EDT [place] ([facility]) Valeria Cooper MD: [address] [place] [id number], Ph. Attender: Valeria Cooper [place] - [facility] Medical 09/18/2020 12:00:00 AM EDT [place] ([facility]) Psychiatric Diagnostic Evaluation (Non-Medical) Attender: Zhao Villagomez [facility] 09/17/2020 10:00:00 AM EDT - 09/17/2020 10:00:00 AM EDT [facility] ([facility]) Attender: Tali Villagomez 09/17/2020 12:00:00 AM EDT [facility] ([facility]) Attender: HIRAM MULLEN NP 04/08/2020 12:00:00 AM EDT [facility] ([facility]) Outpatient Attender: HIRAM MULLEN NP [facility] Myron celeste 04/07/2020 03:30:00 AM EDT - 04/07/2020 03:30:00 AM EDT [facility] ([facility]) Extended Individual Psychotherapy - 45 min Attender: Miriam Umanamelly [facility] 03/26/2020 10:00:00 AM EDT - 03/26/2020 10:00:00 AM EDT [facility] ([facility]) Outpatient Attender: HIRAM MULLEN NP [facility] Myron celeste 03/26/2020 02:00:00 AM EDT - 03/26/2020 02:00:00 AM EDT [facility] ([facility]) Attender: HIRAM MULLEN NP 03/26/2020 12:00:00 AM EDT [facility] ([facility]) Attender: Lexie Preciado 03/26/2020 12:00:00 A M EDT [facility] ([facility]) Attender: Lexie Preciado 03/16/2020 12:00:00 A M EDT [facility] ([facility]) Extended Individual Psychotherapy - 45 min Attender: Miriam Preciado [facility] 03/11/2020 11:15:00 AM EDT - 03/11/2020 11:15:00 AM EDT [facility] ([facility]) Attender: Lexie Umanaosvaldo 03/09/2020 12:00:00 A M EDT [facility] ([facility]) Extended Individual Psychotherapy - 45 min [facility] 03/05/2020 10:00:00 AM EDT - 03/05/2020 10:00:00 AM EDT [facility] ([facility]) Extended Individual Psychotherapy - 45 min Attender: Miriam fernandez [facility] 02/13/2020 10:00:00 AM EDT - 02/13/2020 10:00:00 AM EDT [facility] ([facility]) Attender: Lexie Ialna 02/13/2020 12:00:00 A M EDT [facility] ([facility]) Outpatient Attender: Don Hernandez MD 02/11/2020 10:15:03 AM EDT [facility] Outpatient Attender: Don Hernandez MD 02/11/2020 10:15:02 AM EDT [facility] Outpatient Attender: Don Hernandez MD 02/11/2020 10:14:01 AM EDT [facility] Outpatient Attender: Don Hernandez MD 02/11/2020 10:14:00 AM EDT [facility] Outpatient Attender: Don Hernandez MD 02/10/2020 09:12:01 AM EDT [facility] Outpatient Attender: CURTIS ACEVEDO 02/05/2020 12:02:32 AM EDT [facility] Outpatient Attender: CURTIS ACEVEDO 02/04/2020 08:17:00 AM EDT [facility] Medications Medication Brand Name Start Date Product Form Dose Route Admi nistrative Instructions Pharmacy Instructions Status Indications Reaction Description Data Source(s) aripiprazole 15 MG Oral Tablet aripiprazole 12/03/2019 12:00:00 AM ED T 15 mg by mouth completed <td ID="Medica tionRxNorm_1">[id number]</td><td ID="MedicationMedication_1">aripiprazole</td><td ID="MedicationRoute_1">by mouth</td><td ID="MedicationRouteConcept_1">[id number]</td><td ID="MedicationStartDate_1">12/03/2019</td><td ID="MedicationStopDate_1">04/27/2020</td><td ID="MedicationDosageFrequency_1">at bedtime</td><td ID="MedicationDuration_1">30</td><td ID="MedicationFormulaStrength_1">15 mg</td><td ID="MedicationDosageForm_1">tablet</td><td ID="MedicationDosageFormCode_1"></td><td ID="MedicationDosageDescription_1"></td><td ID="MedicationMedicationId_1">[id number]</td><td ID="MedicationAccount_1">[id number]</td><td ID="MedicationNpid_1">[id number]</td><td ID="MedicationAuthorFirstName_1">Hiram</td><td ID="MedicationAuthorLastName_1">Jabier</td><td ID="MedicationTaxonomyCode_1">[id number]</td><td ID="MedicationTaxonomyDesc_1">Nurse Practitioner</td><td ID="MedicationPhoneNumber_1">[phone]</td> [facility] ([facility]) Ondansetron 4 MG Disintegrating Oral Tab let ondansetron 4 mg disintegrating tablet ondansetron 4 mg disintegrating tablet completed ondansetron 4 MG Disintegrating Oral Tablet [facility] ([facility]) Fluconazole 150 MG Oral Tablet fluconazole 150 mg tabl et fluconazole 150 mg tablet completed fluconazole 150 MG Oral Tablet [facility] ([facility]) NITROFURANTOIN, MACROCRYSTALS 25 MG / Ni trofurantoin, Monohydrate 75 MG Oral Capsule nitrofurantoin monohydrate/macrocrystals 100 mg capsule TAKE ONE CAPSULE BY MOUTH TWICE DAILY FOR SEVEN DAYS nitrofurantoin monohydrate/macrocrystals 100 mg capsule TAKE ONE CAPSULE BY MOUTH TWICE DAILY FOR SEVEN DAYS completed nitrofurantoin, macr ocrystals 25 MG / nitrofurantoin, monohydrate 75 MG Oral Capsule [place] ([facility]) Cholecalciferol 2000 UNT Oral Capsule Vi tamin D3 50 mcg (2,000 unit) capsule TAKE ONE CAPSULE BY MOUTH ONCE DAILY Vitamin D3 50 mcg (2,000 unit) capsule T ADALI ONE CAPSULE BY MOUTH ONCE DAILY comple otto cholecalciferol 0.05 MG Oral Capsule [place] ([facility]) Ondansetron 4 MG Disintegrating Oral Tab let ondansetron 4 mg disintegrating tablet ondansetron 4 mg disintegrating tablet completed ondansetron 4 MG Disintegrating Oral Tablet [place] ([facility]) Phenazopyridine hydrochloride 200 MG Ora l Tablet phenazopyridine 200 mg tablet TAKE ONE TABLET BY MOUTH THREE TIMES DAILY FOR TWO DAYS phenazopyridine 200 mg tablet TAKE ONE TABLET BY MOUTH THREE TIMES DAILY FOR TWO DAYS completed phenazopyridine hydrochloride 20 0 MG Oral Tablet [place] ([facility]) NITROFURANTOIN, MACROCRYSTALS 25 MG / Ni trofurantoin, Monohydrate 75 MG Oral Capsule nitrofurantoin monohydrate/macrocrystals 100 mg capsule TAKE ONE CAPSULE BY MOUTH TWICE DAILY FOR SEVEN DAYS nitrofurantoin monohydrate/macrocrystals 100 mg capsule TAKE ONE CAPSULE BY MOUTH TWICE DAILY FOR SEVEN DAYS completed nitrofurantoin, macr ocrystals 25 MG / nitrofurantoin, monohydrate 75 MG Oral Capsule [place] ([facility]) Metronidazole 500 MG Oral Tablet metroni dazole 500 mg tablet TAKE ONE TABLET BY MOUTH TWICE DAILY metronidazole 500 mg tablet TAKE ONE TAB LET BY MOUTH TWICE DAILY completed metronidazole 50 0 MG Oral Tablet [place] ([facility]) doxycycline hyclate 100 MG Oral Tablet d oxycycline hyclate 100 mg tablet TAKE ONE TABLET BY MOUTH TWICE DAILY FOR 7 DAYS doxycycline hyclate 100 mg tablet TAKE ONE TABLET BY MOUTH TWICE DAILY FOR 7 DAYS completed doxycycline hyclate 100 MG Oral Tablet [place] ([facility]) Ondansetron 4 MG Oral Tablet ondansetron HCl 4 mg tablet TAKE ONE TABLET BY MOUTH EVERY SIX hours NEEDED FOR NAUSEA FOR TWO DAYS ondansetron HCl 4 mg tablet TAKE ONE TABLET BY MOUTH EVERY SIX hours NEEDED FOR NAUSEA FOR TWO DAYS completed ondansetron 4 MG Oral Tablet [place] ([facility]) Metronidazole 500 MG Oral Tablet metroni dazole 500 mg tablet TAKE ONE TABLET BY MOUTH TWICE DAILY metronidazole 500 mg tablet TAKE ONE TAB LET BY MOUTH TWICE DAILY completed metronidazole 50 0 MG Oral Tablet [facility]) Fluconazole 150 MG Oral Tablet fluconazole 150 mg tabl et fluconazole 150 mg tablet completed fluconazole 150 MG Oral Tablet [place] ([facility]) Ondansetron 4 MG Oral Tablet ondansetron HCl 4 mg tablet TAKE ONE TABLET BY MOUTH EVERY SIX hours NEEDED FOR NAUSEA FOR TWO DAYS ondansetron HCl 4 mg tablet TAKE ONE TABLET BY MOUTH EVERY SIX hours NEEDED FOR NAUSEA FOR TWO DAYS completed ondansetron 4 MG Oral Tablet [place] ([facility]) Phenazopyridine hydrochloride 200 MG Ora l Tablet phenazopyridine 200 mg tablet TAKE ONE TABLET BY MOUTH THREE TIMES DAILY FOR TWO DAYS phenazopyridine 200 mg tablet TAKE ONE TABLET BY MOUTH THREE TIMES DAILY FOR TWO DAYS completed phenazopyridine hydrochloride 20 0 MG Oral Tablet [facility]) Metronidazole 500 MG Oral Tablet metroni dazole 500 mg tablet TAKE ONE TABLET BY MOUTH EVERY EIGHT hours metronidazole 500 mg tablet TAKE ONE TAB LET BY MOUTH EVERY EIGHT hours completed metr onidazole 500 MG Oral Tablet [facility] ([facility]) Ondansetron 4 MG Oral Tablet ondansetron HCl 4 mg tablet TAKE ONE TABLET BY MOUTH EVERY SIX hours NEEDED FOR NAUSEA FOR TWO DAYS ondansetron HCl 4 mg tablet TAKE ONE TABLET BY MOUTH EVERY SIX hours NEEDED FOR NAUSEA FOR TWO DAYS completed ondansetron 4 MG Oral Tablet [place] ([facility]) Ciprofloxacin 500 MG Oral Tablet ciprofl oxacin 500 mg tablet TAKE ONE TABLET BY MOUTH TWICE DAILY FOR 7 DAYS ciprofloxacin 500 mg tablet TAKE ONE TAB LET BY MOUTH TWICE DAILY FOR 7 DAYS completed ciprofloxacin 500 MG Oral Tablet [facility]) Cholecalciferol 2000 UNT Oral Capsule Vi tamin D3 50 mcg (2,000 unit) capsule TAKE ONE CAPSULE BY MOUTH ONCE DAILY Vitamin D3 50 mcg (2,000 unit) capsule T ADALI ONE CAPSULE BY MOUTH ONCE DAILY comple otto cholecalciferol 0.05 MG Oral Capsule [facility] ([facility]) Ciprofloxacin 500 MG Oral Tablet ciprofl oxacin 500 mg tablet TAKE ONE TABLET BY MOUTH TWICE DAILY FOR 7 DAYS ciprofloxacin 500 mg tablet TAKE ONE TAB LET BY MOUTH TWICE DAILY FOR 7 DAYS completed ciprofloxacin 500 MG Oral Tablet [facility] ([facility]) NITROFURANTOIN, MACROCRYSTALS 25 MG / Ni trofurantoin, Monohydrate 75 MG Oral Capsule nitrofurantoin monohydrate/macrocrystals 100 mg capsule TAKE ONE CAPSULE BY MOUTH TWICE DAILY FOR SEVEN DAYS nitrofurantoin monohydrate/macrocrystals 100 mg capsule TAKE ONE CAPSULE BY MOUTH TWICE DAILY FOR SEVEN DAYS completed nitrofurantoin, macr ocrystals 25 MG / nitrofurantoin, monohydrate 75 MG Oral Capsule [facility] ([facility]) Phenazopyridine hydrochloride 200 MG Ora l Tablet phenazopyridine 200 mg tablet TAKE ONE TABLET BY MOUTH THREE TIMES DAILY FOR TWO DAYS phenazopyridine 200 mg tablet TAKE ONE TABLET BY MOUTH THREE TIMES DAILY FOR TWO DAYS completed phenazopyridine hydrochloride 20 0 MG Oral Tablet [place] ([facility]) Isibloom 0.15 mg-0.03 mg tablet [id number] completed Isibloom 0.15 mg-0.03 mg tablet [facility] ([facility]) Isibloom 0.15 mg-0.03 mg tablet [id number] completed Isibloom 0.15 mg-0.03 mg tablet [facility] ([facility]) doxycycline hyclate 100 MG Oral Tablet d oxycycline hyclate 100 mg tablet TAKE ONE TABLET BY MOUTH TWICE DAILY FOR 7 DAYS doxycycline hyclate 100 mg tablet TAKE ONE TABLET BY MOUTH TWICE DAILY FOR 7 DAYS completed doxycycline hyclate 100 MG Oral Tablet [facility] ([facility]) doxycycline hyclate 100 MG Oral Tablet d oxycycline hyclate 100 mg tablet TAKE ONE TABLET BY MOUTH TWICE DAILY FOR 7 DAYS doxycycline hyclate 100 mg tablet TAKE ONE TABLET BY MOUTH TWICE DAILY FOR 7 DAYS completed doxycycline hyclate 100 MG Oral Tablet [facility] ([facility]) Insurance Providers Payer name Policy type / Coverage type Policy ID Covered democrat ID Covered democrat's relationship to mckeon Policy [employer] Plan Information [facility] [id number] S [id number] [place] [place] [id number] FA2 [id number] [employer] [place] [id number] FA2 [id number] [employer] [place] [id number] FA2 [id number] MEDICAID [id number] SP [id number] MEDICAID [id number] SP [id number] Medicaid-Pcap Medicaid [id number] Self Medicaid S [id number] S [id number] [place] [id number] FA2 [id number] [place] [id number] FA2 [id number] Medicaid S [id number] S [id number] MEDICAID [id number] SP [id number] MEDICAID [id number] SP [id number] Medicaid S [id number] S [id number] [place] [id number] FA2 [id number] MEDICAID -O/P [id number] [place] - O/P [id number] 18 [id number] [place] - O/P 1 19 1 MEDICAID M [id number] S [id number] UN COMMUNITY PLAN MCDO [id number] SP [id number] [place]NA [place] O [id number] S [id number] SELF PAY O [id number] S [id number] [place] P [id number] S [id number] Medicaid P [id number] S [id number] [place] [id number] FA2 [id number] [facility] OFFICE OF MENTAL HEALTH [id number] S [id number] Medicaid-Pcap Medicaid [id number] Self [id number] Health Net Federal [facility] Commercial [id number] Family Dependent Pierre LevineBuck Celeste avancha II [id number] Medicaid-Pcap Medicaid [id number] Self [id number] Health Net [facility] [id number] Family Dependent [id number] Medicaid-Pcap Medicaid [id number] Self [id number] Health Net [facility] [id number] Family Dependent [id number] [facility] [id number] Family Dependent [id number] Medicaid-Pcap Medicaid [id number] Self [id number] Health Net [facility] [id number] Family Dependent [id number] Medicaid-Pcap Medicaid [id number] Self [id number] Health Net [facility] [id number] Family Dependent [id number] EMEDNY [id number] SP [id number] [place] [id number] SP [id number] Y [facility] [id number] Family Dependent [facility] O [id number] C [id number] Medicaid-Pcap Medicaid [id number] Self [id number] Health Net [facility] [place] [id number] Family Dependent Pierre arceo II [id number] UN COMMUNITY PLAN [facility] [id number] SP [id number] [facility] Commercial [id number] Family Dependent [facility] COMMUNITY PLAN MCDO [id number] SP [id number] [facility] [id number] FA2 [id number] HEALTHNET/ AD P [id number] C [id number] HEALTHNET/ AD P 000 C 000 MEDICAID [id number] SP [id number] [facility]ALTH[facility]/ AD P UNAVAILABLE C UNAVAILABLE Problems, Conditions, and Diagnoses Code Display Name Description Problem Type Effective Dates Data Source(s) Borderline personality disorder Borderline Perso nality Disorder Problem 03/09/2021 12:00:00 AM EDT LOYDA ([facility]) F12.10 Cannabis abuse, uncomplicated Cannabis Use Disorder, M ild Condition 11/05/2020 12:00:00 AM EDT [facility] ([facility]) F31.9 Bipolar disorder, unspecified Unspecified Bipola r and Related Disorder Condition 11/05/2020 12:00:00 AM EDT [facility] ([facility]) [id number] Cyst of right ovary Cyst of Right Ovary Problem 09/18/2020 12:00:00 AM EDT LOYDA ([facility]) [id number] History of attempted suicide History of Attempted Suic piper Problem 09/18/2020 12:00:00 AM EDT LOYDA ([facility]) [id number] Cyst of right ovary Cyst of Right Ovary Problem 09/18/2020 12:00:00 AM EDT LOYDA ([facility]) [id number] History of attempted suicide History of Attempted Suic piper Problem 09/18/2020 12:00:00 AM EDT LOYDA ([facility]) [id number] Cyst of right ovary Cyst of Right Ovary Problem 09/18/2020 12:00:00 AM EDT LOYDA ([facility]) [id number] History of attempted suicide History of Attempted Suic piper Problem 09/18/2020 12:00:00 AM EDT LOYDA ([facility]) F43.12 Post-traumatic stress disorder, chronic Post-traumatic stress disorder, chronic Condition 04/08/2020 12:00:00 AM EDT Accumedic ([facility]) F60.3 Borderline personality disorder Borderline Personality Disorder Condition 04/08/2020 12:00:00 AM EDT [facility] ([facility]) F31.2 Bipolar disorder, current episode manic severe with psychotic features Bipolar I Disorder, Current or most recent episode manic, With psychotic features Condition 04/08/2020 12:00:00 AM EDT [facility] ([facility]) [id number] Procedure by method Procedure by Method Problem 0 02/27/2019 12:00:00 AM EDT - 09/18/2020 12:00:00 AM EDT LOYDA ([facility]) [id number] Procedure by method Procedure by Method Problem 0 02/27/2019 12:00:00 AM EDT - 09/18/2020 12:00:00 AM EDT LOYDA ([facility]) [id number] Procedure by method Procedure by Method Problem 0 02/27/2019 12:00:00 AM EDT - 09/18/2020 12:00:00 AM EDT LOYDA ([facility]) [id number] ultrasound finding Ultrasound Find ing Problem 10/06/2017 12:00:00 AM EDT - 09/18/2020 12:00:00 AM EDT LOYDA ([facility]) [id number] ultrasound finding Ultrasound Find ing Problem 10/06/2017 12:00:00 AM EDT - 09/18/2020 12:00:00 AM EDT LOYDA ([facility]) [id number] ultrasound finding Ultrasound Find ing Problem 10/06/2017 12:00:00 AM EDT - 09/18/2020 12:00:00 AM EDT LOYDA ([facility]) [id number] Reproductive care management Reproductive Care Managem ent Problem 06/28/2017 12:00:00 AM EST - 09/18/2020 12:00:00 AM EDT LOYDA ([facility]) [id number] Body mass index 30+ - obesity Body Mass Index 30+ - Ob esity Problem 06/28/2017 12:00:00 AM EST - 09/18/2020 12:00:00 AM EDT TWAIN ([facility]) [id number] Reproductive care management Reproductive Care Managem ent Problem 06/28/2017 12:00:00 AM EST - 09/18/2020 12:00:00 AM EDT LOYDA ([facility]) [id number] Body mass index 30+ - obesity Body Mass Index 30+ - Ob esity Problem 06/28/2017 12:00:00 AM EST - 09/18/2020 12:00:00 AM EDT LOYDA ([facility]) [id number] Reproductive care management Reproductive Care Managem ent Problem 06/28/2017 12:00:00 AM EST - 09/18/2020 12:00:00 AM EDT TWAIN ([facility]) [id number] Body mass index 30+ - obesity Body Mass Index 30+ - Ob esity Problem 06/28/2017 12:00:00 AM EST - 09/18/2020 12:00:00 AM EDT LOYDA ([facility]) Surgeries/Procedures Procedure Description Date Indications Data Source(s) OFFICE OUTPATIENT NEW 30 MINUTES 12/06/2020 12:00:00 A M EDT MEDENT ([facility], [facility]) Extended Individual Psychotherapy - 45 min 11/05/2020 12:00:00 AM EDT - 11/05/2020 12:00:00 AM EDT [facility] ([facility]) Extended Individual Psychotherapy - 45 min 12:00:00 AM EDT Acc[facility] ([facility]) Extended Individual Psychotherapy - 45 min 10/08/2020 12:00:00 AM EDT - 10/08/2020 12:00:00 AM EDT [facility] ([facility]) Extended Individual Psychotherapy - 45 min 12:00:00 AM EDT Acc[facility] ([facility]) Psychiatric Diagnostic Evaluation (Non-Medical) 09/17/2020 12:00:00 AM EDT - 09/17/2020 12:00:00 AM EDT [facility] ([facility]) Psychiatric Diagnostic Evaluation (Non-Medical) 2020 12:00:00 AM EDT Acc[facility] ([facility]) OFFICE OUTPATIENT VISIT 15 MINUTES 04/08 12:00:00 AM EDT - 04/08/2020 12:00:00 AM EDT [facility] ([facility]) OFFICE OUTPATIENT VISIT 15 MINUTES 04/07/2020 12:00:00 AM EDT Acc[facility]ic ([facility]) MHC Telemed E/M Lvl 3--Est pt 03/26/2020 12:00:00 AM EDT - 03/26/2020 12:00:00 AM EDT [facility] ([facility]) MHC Telemed E/M Lvl 3--Est pt 03/26/2020 12:00:00 AM E DT Accumedic ([facility]) Extended Individual Psychotherapy - 45 min 03/26/2020 12:00:00 AM EDT - 03/26/2020 12:00:00 AM EDT [facility] ([facility]) Extended Individual Psychotherapy - 45 min 0 12:00:00 AM EDT Accumedic ([facility]) Extended Individual Psychotherapy - 45 min 03/16/2020 12:00:00 AM EDT - 03/16/2020 12:00:00 AM EDT Accumedic ([facility]) Extended Individual Psychotherapy - 45 min 0 12:00:00 AM EDT Accumedic ([facility]) Extended Individual Psychotherapy - 45 min 03/09/2020 12:00:00 AM EDT - 03/09/2020 12:00:00 AM EDT [facility]umed[facility] ([facility]) Extended Individual Psychotherapy - 45 min 0 12:00:00 AM EDT Accumedic ([facility]) Extended Individual Psychotherapy - 45 min 02/13/2020 12:00:00 AM EDT - 02/13/2020 12:00:00 AM EDT [facility] ([facility]) Extended Individual Psychotherapy - 45 min 12:00:00 AM EDT Accumgisela ([facility]) Results ID Date Data Source [id number] 03/09/2021 12:00:00 AM EDT [facility]) Name Value Range Interpretation Code Description Data Shagufta rce(s) Supporting Document(s) Reagin Ab [Presence] in Serum by RPR non-reactive non-reactive RPR (DX) W/refl Titer and Confirmatory Testing [facility]) ID Date Data Source [id number] 03/09/2021 12:00:00 AM EDT [facility]) Name Value Range Interpretation Code Description Data Shagufta rce(s) Supporting Document(s) Neisseria gonorrhoeae rRNA [Presence] in Unspecified specimen by Probe and target amplification method not detected not detected Neis seria Gonorrhoeae RNA, Tma, Urogenital TWAIN ([facility]) Chlamydia trachomatis rRNA [Presence] in Unspecified specimen by Probe and target amplification method not detected not detected Chla mydia Trachomatis RNA, Tma, Urogenital TWAIN ([facility]) Trichomonas vaginalis rRNA [Presence] in Unspecified specimen by Probe and target amplification method not detected not detected sure swab(R) Trichomonas Vaginalis RNA, Ql, Tma [facility]) Service comment 05 see note Assay Details [facility] ([facility]) Mycoplasma genitalium DNA [Presence] in Unspecified specimen by Probe and target amplification method not detected not detected sureswab(R ), Mycoplasma Genitalium,realtime PCR [facility]) ID Date Data Source [id number] 03/09/2021 12:00:00 AM EDT [facility]) Name Value Range Interpretation Code Description Data Shagufta rce(s) Supporting Document(s) Hepatitis C virus Ab Signal/Cutoff in Serum or Plasma by Imm unoassay 0.02 ratio <1.00 Index LOYDA ([facility]) Hepatitis C virus Ab [Presence] in Serum or Plasma by Immuno assay nonreactive nonreactive Hepatitis C Antibody TWAIN ([facility]) HIV 1+2 Ab+HIV1 p24 Ag [Presence] in Serum or Plasma b y Immunoassay non-reactive non-reactive HIV Ag/Ab, 4TH Gen TWAIN ([facility]) ID Date Data Source [id number] 03/06/2021 10:18:00 PM EDT TWAIN ([facility]) Name Value Range Interpretation Code Description Data Shagufta rce(s) Supporting Document(s) istat B-HCG < 5.0 Istat B-HCG TWAIN ([facility]) ID Date Data Source [id number] 03/06/2021 10:18:00 PM EDT TWAIN ([facility]) Name Value Range Interpretation Code Description Data Shagufta rce(s) Supporting Document(s) istat B-HCG < 5.0 Istat B-HCG TWAIN ([facility]) ID Date Data Source [id number] 12/07/2020 08:28:00 AM EDT MEDENT ([facility]) Name Value Range Interpretation Code Description Data Shagufta rce(s) Supporting Document(s) Choriogonadotropin.beta subunit [Moles/volume] in Seru m or Plasma Laboratory test result [facility] ([facility], [facility]) GESTATIONAL AGE APPROXIMATE HCG RANGE (MIU/ML) - 0.2-1 WEEK 5-50 1-2 WEEKS 50-500 2-3 WEEKS 100-5,000 3-4 WEEKS 500-10,000 4-5 WEEKS 1,000-50,000 5-6 WEEKS 10,000-100,000 6-8 WEEKS 15,000-200,000 2-3 MONTHS 10,000-100,00 0 NON FEMALES LESS THAN 3.0 Patient samples may contain human heterophilic antibodies that could react with immunoassays to give falsely elevated or depressed results. This assay has been designed to minimize interference from heterophilic antibodies. Elevated hCG levels have also been associated with trophoblastic disease and nontrophoblastic neoplasms. The possibility of having these diseases should be considered before a diagnosis of is made. This test is not intended for use as a surrogate marker for aiding in the diagnosis or monitoring the treatment of cancer patients. Siemens [place] methodology. ID Date Data Source [id number] 12/06/2020 12:50:00 PM [address] [facility]) Name Value Range Interpretation Code Description Data Shagufta rce(s) Supporting Document(s) Bacteria identified in Urine by Culture Laboratory test result [facility] ([facility]) FULL REPORT IN LAB NOTES ([facility] and [facility] ). SPECIMEN APPEARS CONTAMINATED ID Date Data Source [id number] 10/18/2020 11:56:00 PM EDT [facility]) Name Value Range Interpretation Code Description Data Shagufta rce(s) Supporting Document(s) GC DNA probe negative negative GC DNA Probe TWAIN ([facility]) chlamydia DNA probe negative negative Chlamydia DNA Pr obe TWAIN ([facility]) ID Date Data Source [id number] 10/18/2020 11:56:00 PM EDT TWAIN ([facility]) Name Value Range Interpretation Code Description Data Shagufta rce(s) Supporting Document(s) chlamydia DNA probe negative negative Chlamydia DNA Pr obe TWAIN ([facility]) GC DNA probe negative negative GC DNA Probe TWAIN ([facility]) ID Date Data Source [id number] 10/18/2020 11:26:00 PM EDT [facility]) Name Value Range Interpretation Code Description Data Shagufta rce(s) Supporting Document(s) trichomonas vaginalis (amp) not detected negative Tricho monas Vaginalis (Amp) [facility]) ID Date Data Source [id number] 10/18/2020 11:26:00 PM EDT [facility]) Name Value Range Interpretation Code Description Data Shagufta rce(s) Supporting Document(s) trichomonas vaginalis (amp) not detected negative Tricho monas Vaginalis (Amp) [facility]) ID Date Data Source [id number] 10/18/2020 10:32:00 PM EDT [facility]) Name Value Range Interpretation Code Description Data Shagufta rce(s) Supporting Document(s) ID Date Data Source [id number] 10/18/2020 10:32:00 PM EDT [facility]) Name Value Range Interpretation Code Description Data Shagufta rce(s) Supporting Document(s) HCG, serum quantitative < 1.0 HCG, Serum Q uantitative [facility]) ID Date Data Source [id number] 10/18/2020 10:32:00 PM EDT [facility]) Name Value Range Interpretation Code Description Data Shagufta rce(s) Supporting Document(s) ID Date Data Source [id number] 10/18/2020 10:32:00 PM EDT [facility]) Name Value Range Interpretation Code Description Data Shagufta rce(s) Supporting Document(s) HCG, serum quantitative < 1.0 HCG, Serum Q uantitative [facility]) ID Date Data Source [id number] 09/18/2020 05:28:00 PM EDT [facility]) Name Value Range Interpretation Code Description Data Shagufta rce(s) Supporting Document(s) HCG negative Hcg [facility]) ID Date Data Source [id number] 09/18/2020 05:28:00 PM EDT TWAIN ([facility]) Name Value Range Interpretation Code Description Data Shagufta rce(s) Supporting Document(s) HCG negative Hcg LOYDA ([facility]) ID Date Data Source [id number] 09/18/2020 05:28:00 PM EDT TWAIN ([facility]) Name Value Range Interpretation Code Description Data Shagufta rce(s) Supporting Document(s) HCG negative Hcg LOYDA ([facility]) ID Date Data Source [id number] 02/08/2020 05:55:00 AM EDT [facility] Name Value Range Interpretation Code Description Data Shagufta rce(s) Supporting Document(s) HGBA1C 5.6 % N [facility] ID Date Data Source [id number] 02/07/2020 08:08:00 PM EDT [facility] Name Value Range Interpretation Code Description Data Shagufta rce(s) Supporting Document(s) BG FASTING 94 mg/dL 70-100 N [facility] ID Date Data Source [id number] 02/07/2020 08:08:00 PM EDT [facility] Name Value Range Interpretation Code Description Data Shagufta rce(s) Supporting Document(s) HCT 38.8 % 36.0-47.0 N [facility] HGB 12.5 g/dL 12.0-15.5 [facility] MCH 32.2 G/DL pg 32.0-36.5 N [facility] MCHC 27.7 PG % 27.0-33.0 [facility] PLATELETS 271 10 10*3/mm3 150-450 N [facility] RBC 4.52 10 10*6/mm3 4.00-5.40 N [facility] RDW 12.9 % 11.5-14.5 N [facility] WBC TOTAL 19.7 4.0-10.0 H [facility] Procedure Social History Code Duration Value Status Description Data Source(s ) Smoking 12/06/2020 12:00:00 AM EDT Never Smoked Cigarettes com pleted Never Smoked Cigarettes [facility] ([facility], [facility]) Smoking 11/05/2020 12:00:00 AM EDT Unknown if ever smoked comp leted Unknown if ever smoked [facility] ([facility]) Smoking 10/13/2020 12:00:00 AM EDT Current Smoker completed Curre nt Smoker eCW1 ([facility]) Smoking 10/13/2020 12:00:00 AM EDT Current Smoker completed Curre nt Smoker eCW1 ([facility]) Smoking 10/08/2020 12:00:00 AM EDT Unknown if ever smoked comp leted Unknown if ever smoked [facility] ([facility]) Smoking 09/17/2020 12:00:00 AM EDT Unknown if ever smoked comp leted Unknown if ever smoked [facility] ([facility]) Smoking 04/08/2020 12:00:00 AM EDT Unknown if ever smoked comp leted Unknown if ever smoked [facility] ([facility]) Smoking 03/26/2020 12:00:00 AM EDT Unknown if ever smoked comp leted Unknown if ever smoked [facility] ([facility]) Smoking 03/16/2020 12:00:00 AM EDT Unknown if ever smoked comp leted Unknown if ever smoked [facility] ([facility]) Smoking 03/09/2020 12:00:00 AM EDT Unknown if ever smoked comp leted Unknown if ever smoked [facility] ([facility]) Smoking 02/13/2020 12:00:00 AM EDT Unknown if ever smoked comp leted Unknown if ever smoked [facility] ([facility]) Vital Signs ID Date Data Source UNK Name Value Range Interpretation Code Description Data Source(s) Diastolic blood pressure 72 mm[Hg] 72 mm[Hg] LOYDA ([facility]) Body height 60 [in_i] 60 [in_i] LOYDA ([facility]) Body mass index (BMI) [Ratio] 43.6 kg/m2 43.6 k g/m2 LOYDA ([facility]) Systolic blood pressure 103 mm[Hg] 103 mm[Hg] A VILMAA ([facility]) Body weight 3576 [oz_av] 3576 [oz_av] LOYDA ([facility]) Diastolic blood pressure 72 mm[Hg] 72 mm[Hg] LOYDA ([facility]) Body height 60 [in_i] 60 [in_i] LOYDA ([facility]) Body mass index (BMI) [Ratio] 43.6 kg/m2 43.6 k g/m2 LOYDA ([facility]) Systolic blood pressure 103 mm[Hg] 103 mm[Hg] A VILMAA ([facility]) Body weight 3576 [oz_av] 3576 [oz_av] LOYDA ([facility]) Respiratory rate 17 /min 17 /min MEDENT ( [facility], [facility]) Oxygen saturation in Arterial blood by Pulse oximetry 94 % 94 % [facility] ([facility], [facility]) Body temperature 97.5 [degF] 97.5 [degF] MEDENT ([facility], [facility]) Body weight 220.00 [lb_av] 220.00 [lb_av] MEDEN T ([facility], [facility]) Body height 60 [in_i] 60 [in_i] MEDENT ([facility], [facility]) 5'0" Body mass index (BMI) [Ratio] 43.0 kg/m2 43.0 k g/m2 MEDENT ([facility], [facility]) Systolic blood pressure 118 mm[Hg] 118 mm[Hg] M EDENT ([facility], [facility]) Diastolic blood pressure 78 mm[Hg] 78 mm[Hg] MEDENT ([facility], [facility]) Heart rate 93 /min 93 /min MEDENT ([facility], [facility]) Body weight 221.6 [lb_av] 221.6 [lb_av] eCW1 ([facility]) Body weight 100.52 kg 100.52 kg eCW1 ([facility]) Body height 64 [in_i] 64 [in_i] eCW1 ([facility]) Body mass index (BMI) [Ratio] 38.03 kg/m2 38.03 kg/m2 eCW1 ([facility]) Systolic blood pressure 126 mm[Hg] 126 mm[Hg] e CW1 ([facility]) Diastolic blood pressure 86 mm[Hg] 86 mm[Hg] eCW1 ([facility]) Body mass index (BMI) [Ratio] 42.8 kg/m2 42.8 k g/m2 LOYDA ([facility]) Systolic blood pressure 135 mm[Hg] 135 mm[Hg] A [facility] ([facility]) Body weight 3510.4 [oz_av] 3510.4 [oz_av] ATHEN A ([facility]) Diastolic blood pressure 85 mm[Hg] 85 mm[Hg] LOYDA ([facility]) Body height 60 [in_i] 60 [in_i] LOYDA ([facility]) Body mass index (BMI) [Ratio] 42.8 kg/m2 42.8 k g/m2 LOYDA ([facility]) Body height 60 [in_i] 60 [in_i] LOYDA ([facility]) Systolic blood pressure 135 mm[Hg] 135 mm[Hg] A THENA ([facility]) Body weight 3510.4 [oz_av] 3510.4 [oz_av] ATHEN A ([facility]) Diastolic blood pressure 85 mm[Hg] 85 mm[Hg] LOYDA ([facility]) Diastolic blood pressure 85 mm[Hg] 85 mm[Hg] LOYDA ([facility]) Body height 60 [in_i] 60 [in_i] LOYDA ([facility]) Body mass index (BMI) [Ratio] 42.8 kg/m2 42.8 k g/m2 LOYDA ([facility]) Systolic blood pressure 135 mm[Hg] 135 mm[Hg] A [facility] ([facility]) Body weight 3510.4 [oz_av] 3510.4 [oz_av] NURIA A ([facility]) Patient Treatment Plan of Care Planned Activity Planned Date Details Description Data Source (s) Cholecalciferol 1999 UNT Oral Capsule LOYDA ([facility]) Phenazopyridine hydrochloride 200 MG Oral Tablet LOYDA ([facility]) Ondansetron 4 MG Oral Tablet LOYDA ([facility]) Ondansetron 4 MG Disintegrating Oral Tablet LOYDA ([facility]) NITROFURANTOIN, MACROCRYSTALS 25 MG / Ni trofurantoin, Monohydrate 75 MG Oral Capsule LOYDA ([facility]) Metronidazole 500 MG Oral Tablet LOYDA ([facility]) Isibloom 0.15 mg-0.03 mg tablet LOYDA ([facility]) Fluconazole 150 MG Oral Tablet LOYDA ([facility]) doxycycline hyclate 100 MG Oral Tablet LOYDA ([facility]) Ciprofloxacin 500 MG Oral Tablet LOYDA ([facility]) Cholecalciferol 2000 UNT Oral Capsule LOYDA ([facility]) Phenazopyridine hydrochloride 200 MG Oral Tablet LOYDA ([facility]) Ondansetron 4 MG Oral Tablet LOYDA ([facility]) Ondansetron 4 MG Disintegrating Oral Tablet LOYDA ([facility]) NITROFURANTOIN, MACROCRYSTALS 25 MG / Ni trofurantoin, Monohydrate 75 MG Oral Capsule LOYDA ([facility]) Metronidazole 500 MG Oral Tablet LOYDA ([facility]) Isibloom 0.15 mg-0.03 mg tablet LOYDA ([facility]) Fluconazole 150 MG Oral Tablet LOYDA ([facility]) doxycycline hyclate 100 MG Oral Tablet LOYDA ([facility]) Ciprofloxacin 500 MG Oral Tablet LOYDA ([facility]) Phenazopyridine hydrochloride 200 MG Oral Tablet LOYDA ([facility]) Ondansetron 4 MG Oral Tablet LOYDA ([facility]) NITROFURANTOIN, MACROCRYSTALS 25 MG / Ni trofurantoin, Monohydrate 75 MG Oral Capsule LOYDA ([facility]) Metronidazole 500 MG Oral Tablet LOYDA ([facility]) doxycycline hyclate 100 MG Oral Tablet LOYDA ([facility])
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
--- OUTSIDE RECORDS SUMMARY | 2021-04-02 19:25 | CCD ---
Author Author [facility] Organization [facility] Address Unknown Phone Unavailable Care Team Providers Care Relay Record Clerk Name Role Phone Sunshine Menard Unavailable Unavailable [...] PROSPER PA Unavailable Unavailable JABIER, H HIRAM PEDIATRIC PHYSICAL THERAPIST Unavailable Unavailable JABIER, H HIRAM PEDIATRIC PHYSICAL THERAPIST Unavailable Unavailable JABIER, H HIRAM PEDIATRIC PHYSICAL THERAPIST Unavailable Unavailable JABIER, H HIRAM PEDIATRIC PHYSICAL THERAPIST Unavailable Unavailable JABIER, H HIRAM PEDIATRIC PHYSICAL THERAPIST Unavailable Unavailable JABIER, H HIRAM PEDIATRIC PHYSICAL THERAPIST Unavailable Unavailable JABIER, H HIRAM PEDIATRIC PHYSICAL THERAPIST Unavailable Unavailable JABIER, H HIRAM PEDIATRIC PHYSICAL THERAPIST Unavailable Unavailable JABIER, H HIRAM PEDIATRIC PHYSICAL THERAPIST Unavailable Unavailable Lexie Preciado Unavailable Jessica Hernandez [...] Unavailable Unavailable Jessica Hernandez MD Unavailable Unavailable Jesscia Hernandez MD Unavailable Unavailable Jessica Hernandez MD [...] Unavailable Unavailable Jessica Hernandez MD Unavailable Unavailable Jesisca Hernandez MD Unavailable Unavailable Jessica Hernandez MD [...] Lucila Harris Unavailable Lucila Harris Unavailable Tali iVllagomez Unavailable Re-disclosure Warning The records that you [...] is protected by Article 27-F of the [facility] Public Health law. If you continue you may have access to information: Regarding HIV / AIDS; Provided by facilities licensed or operated by the [facility] Office of Mental Health; or Provided by the [facility] Office for People With Developmental Disabilities. If such information is present, then the following [facility] mandated warning applies: This information has been [...] law may result in a fine or alf sentence or both. A general authorization for the release of medical or other information is NOT sufficient authorization for further disc losure. Family History Family Member Name Family Member Gender Family Member Status Date o f Status Description Data Source(s) Unknown Unknown Problem MEDENT ([facility]) Unknown Unknown Problem MEDENT ([facility]) Encounters Encounter Providers Location Date Indications Data Source(s ) Unknown [id number] [facility] [address] 03/16/2021 12:00:00 AM EDT eCW1 ([facility]) Lucila Harris [facility]: [address] [place] [address], Ph. Attender: Lucila Harris [facility] Medical 03/09/2021 12:00:00 AM EDT LOYDA ([facility]) Valeria Cooper MD: [address] [facility] [place] [address], Ph. Attender: Valeria Cooper [facility] Medical 03/09/2021 12:00:00 AM EDT LOYDA ([facility]) Lucila Harris LMSW: [address] [place] [address], Ph. Attender: Lucila Harris [facility] Medical 03/09/2021 12:00:00 AM EDT [facility] ([facility]) Valeria Cooper MD: [address], [place] [address], Ph. Attender: Valeria Cooper [facility] Medical 03/09/2021 12:00:00 AM EDT LOYDA ([facility]) Valeria Cooper MD: [address] [place] [address], Ph. Attender: Valeria Cooper [facility] Medical 03/09/2021 12:00:00 AM EDT LOYDA ([facility]) Outpatient Attender: PROSPER bronson 12/06/2020 12:05:00 PM EDT MEDENT ([facility]) Extended Individual Psychotherapy - 45 min Attender: Tali Villagomez [facility] 11/05/2020 03:00:00 AM EDT - 11/05/2020 03:00:00 AM EDT [facility] ([facility]) Attender: Tali Villagomez 11/05/2020 12:00:00 AM EDT [facility] ([facility] Outpatient [id number] [address] 10/13/2020 12:00:00 AM EDT eCW1 ([facility]) Extended Individual Psychotherapy - 45 min Attender: Tali Villagomez [facility] 10/08/2020 10:00:00 AM EDT - 10/08/2020 10:00:00 AM EDT [facility] ([facility]) Attender: Tali Villagomez 10/08/2020 12:00:00 AM EDT [facility] ([facility]) Valeria Cooper MD: [address] [place] [address], Ph. Attender: Valeria Cooper [facility] Medical 09/18/2020 12:00:00 AM EDT LOYDA ([facility]) Valeria Cooper MD: [address] [place] [address], Ph. Attender: Valeria Cooper [facility] Medical 09/18/2020 12:00:00 AM EDT LOYDA ([facility]) Valeria Cooper MD: [address] [place] [address], Ph. Attender: Valeria Cooper [place] - [facility] Medical 09/18/2020 12:00:00 AM EDT LOYDA ([facility]) Psychiatric Diagnostic Evaluation (Non-Medical) Attender: Zhao Villagomez [facility] 09/17/2020 10:00:00 AM EDT - 09/17/2020 10:00:00 AM EDT [facility] ([facility]) Attender: Tali Villagomez 09/17/2020 12:00:00 AM EDT [facility] ([facility]) Attender: HIRAM MULLEN NP 04/08/2020 12:00:00 AM EDT [facility] ([facility]) Outpatient Attender: HIRAM MULLEN NP [facility] Myron celeste 04/07/2020 03:30:00 AM EDT - 04/07/2020 03:30:00 AM EDT [facility] ([facility]) Extended Individual Psychotherapy - 45 min Attender: Miriam Umanamelly [facility] 03/26/2020 10:00:00 AM EDT - 03/26/2020 10:00:00 AM EDT [facility] ([facility]) Outpatient Attender: HIRAM MULLEN NP [facility] Myron celeste 03/26/2020 02:00:00 AM EDT - 03/26/2020 02:00:00 AM EDT [facility] ([facility]) Attender: HIRAM MULLEN NP 03/26/2020 12:00:00 AM EDT [facility] ([facility]) Attender: Lexie Preciado 03/26/2020 12:00:00 A M EDT [facility] ([facility]) Attender: Lexie Preciado 03/16/2020 12:00:00 A M EDT [facility] ([facility]) Extended Individual Psychotherapy - 45 min Attender: Miriam Preciado [facility] 03/11/2020 11:15:00 AM EDT - 03/11/2020 11:15:00 AM EDT [facility] ([facility]) Attender: Lexie Umanaosvaldo 03/09/2020 12:00:00 A M EDT [facility] ([facility]) Extended Individual Psychotherapy - 45 min [facility]/05/2020 10:00:00 AM EDT - 03/05/2020 10:00:00 AM EDT [facility] ([facility]) Extended Individual Psychotherapy - 45 min Attender: Miriam fernandez [facility] 02/13/2020 10:00:00 AM EDT - 02/13/2020 10:00:00 AM EDT [facility] ([facility]) Attender: Lexie Ilana 02/13/2020 12:00:00 A M EDT [facility] ([facility]) Outpatient Attender: Don Hernandez MD 02/11/2020 10:15:03 AM EDT [facility] Outpatient Attender: Don Hernandez MD 02/11/2020 10:15:02 AM EDT [facility] Outpatient Attender: Don Hernandez MD 02/11/2020 10:14:01 AM EDT [facility] Outpatient Attender: Don Hernandez MD 02/11/2020 10:14:00 AM EDT [facility] Outpatient Attender: Don Hernandez MD 02/10/2020 09:12:01 AM EDT [facility] Outpatient Attender: CURTIS ACEVEDO 02/05/2020 12:02:32 AM EDT [facility] Outpatient Attender: CURTIS ACEVEDO 02/04/2020 08:17:00 AM EDT [facility] Medications Medication Brand Name Start Date Product Form Dose Route Admi nistrative Instructions Pharmacy Instructions Status Indications Reaction Description Data Source(s) aripiprazole 15 MG Oral Tablet aripiprazole 12/03/2019 12:00:00 AM ED T 15 mg by mouth completed <td ID="Medica tionRxNorm_1">[id number]</td><td ID="MedicationMedication_1">aripiprazole</td><td ID="MedicationRoute_1">by mouth</td><td ID="MedicationRouteConcept_1">U13523</td><td ID="MedicationStartDate_1">12/03/2019</td><td ID="MedicationStopDate_1">04/27/2020</td><td ID="MedicationDosageFrequency_1">at bedtime</td><td ID="MedicationDuration_1">30</td><td ID="MedicationFormulaStrength_1">15 mg</td><td ID="MedicationDosageForm_1">tablet</td><td ID="MedicationDosageFormCode_1"></td><td ID="MedicationDosageDescription_1"></td><td ID="MedicationMedicationId_1">[id number]</td><td ID="MedicationAccount_1">[id number]</td><td ID="MedicationNpid_1">[id number]</td><td ID="MedicationAuthorFirstName_1">Hiram</td><td ID="MedicationAuthorLastName_1">Jabier</td><td ID="MedicationTaxonomyCode_1">[id number]</td><td ID="MedicationTaxonomyDesc_1">Nurse Practitioner</td><td ID="MedicationPhoneNumber_1">[phone]</td> [facility]umed[facility] ([facility]) Ondansetron 4 MG Disintegrating Oral Tab let ondansetron 4 mg disintegrating tablet ondansetron 4 mg disintegrating tablet completed ondansetron 4 MG Disintegrating Oral Tablet LOYDA ([facility]) Fluconazole 150 MG Oral Tablet fluconazole 150 mg tabl et fluconazole 150 mg tablet completed fluconazole 150 MG Oral Tablet LOYDA ([facility]) NITROFURANTOIN, MACROCRYSTALS 25 MG / Ni trofurantoin, Monohydrate 75 MG Oral Capsule nitrofurantoin monohydrate/macrocrystals 100 mg capsule TAKE ONE CAPSULE BY MOUTH TWICE DAILY FOR SEVEN DAYS nitrofurantoin monohydrate/macrocrystals 100 mg capsule TAKE ONE CAPSULE BY MOUTH TWICE DAILY FOR SEVEN DAYS completed nitrofurantoin, macr ocrystals 25 MG / nitrofurantoin, monohydrate 75 MG Oral Capsule [facility] ([facility]) Cholecalciferol 2000 UNT Oral Capsule Vi tamin D3 50 mcg (2,000 unit) capsule TAKE ONE CAPSULE BY MOUTH ONCE DAILY Vitamin D3 50 mcg (2,000 unit) capsule T ADALI ONE CAPSULE BY MOUTH ONCE DAILY comple otto cholecalciferol 0.05 MG Oral Capsule [facility] ([facility]) Ondansetron 4 MG Disintegrating Oral Tab let ondansetron 4 mg disintegrating tablet ondansetron 4 mg disintegrating tablet completed ondansetron 4 MG Disintegrating Oral Tablet [facility] ([facility]) Phenazopyridine hydrochloride 200 MG Ora l Tablet phenazopyridine 200 mg tablet TAKE ONE TABLET BY MOUTH THREE TIMES DAILY FOR TWO DAYS phenazopyridine 200 mg tablet TAKE ONE TABLET BY MOUTH THREE TIMES DAILY FOR TWO DAYS completed phenazopyridine hydrochloride 20 0 MG Oral Tablet [facility] ([facility]) NITROFURANTOIN, MACROCRYSTALS 25 MG / Ni trofurantoin, Monohydrate 75 MG Oral Capsule nitrofurantoin monohydrate/macrocrystals 100 mg capsule TAKE ONE CAPSULE BY MOUTH TWICE DAILY FOR SEVEN DAYS nitrofurantoin monohydrate/macrocrystals 100 mg capsule TAKE ONE CAPSULE BY MOUTH TWICE DAILY FOR SEVEN DAYS completed nitrofurantoin, macr ocrystals 25 MG / nitrofurantoin, monohydrate 75 MG Oral Capsule [facility] ([facility]) Metronidazole 500 MG Oral Tablet metroni dazole 500 mg tablet TAKE ONE TABLET BY MOUTH TWICE DAILY metronidazole 500 mg tablet TAKE ONE TAB LET BY MOUTH TWICE DAILY completed metronidazole 50 0 MG Oral Tablet [facility] ([facility]) doxycycline hyclate 100 MG Oral Tablet d oxycycline hyclate 100 mg tablet TAKE ONE TABLET BY MOUTH TWICE DAILY FOR 7 DAYS doxycycline hyclate 100 mg tablet TAKE ONE TABLET BY MOUTH TWICE DAILY FOR 7 DAYS completed doxycycline hyclate 100 MG Oral Tablet [facility] ([facility]) Ondansetron 4 MG Oral Tablet ondansetron HCl 4 mg tablet TAKE ONE TABLET BY MOUTH EVERY SIX hours NEEDED FOR NAUSEA FOR TWO DAYS ondansetron HCl 4 mg tablet TAKE ONE TABLET BY MOUTH EVERY SIX hours NEEDED FOR NAUSEA FOR TWO DAYS completed ondansetron 4 MG Oral Tablet [facility] ([facility]) Metronidazole 500 MG Oral Tablet metroni dazole 500 mg tablet TAKE ONE TABLET BY MOUTH TWICE DAILY metronidazole 500 mg tablet TAKE ONE TAB LET BY MOUTH TWICE DAILY completed metronidazole 50 0 MG Oral Tablet [facility]) Fluconazole 150 MG Oral Tablet fluconazole 150 mg tabl et fluconazole 150 mg tablet completed fluconazole 150 MG Oral Tablet [facility] ([facility]) Ondansetron 4 MG Oral Tablet ondansetron HCl 4 mg tablet TAKE ONE TABLET BY MOUTH EVERY SIX hours NEEDED FOR NAUSEA FOR TWO DAYS ondansetron HCl 4 mg tablet TAKE ONE TABLET BY MOUTH EVERY SIX hours NEEDED FOR NAUSEA FOR TWO DAYS completed ondansetron 4 MG Oral Tablet [facility] ([facility]) Phenazopyridine hydrochloride 200 MG Ora l Tablet phenazopyridine 200 mg tablet TAKE ONE TABLET BY MOUTH THREE TIMES DAILY FOR TWO DAYS phenazopyridine 200 mg tablet TAKE ONE TABLET BY MOUTH THREE TIMES DAILY FOR TWO DAYS completed phenazopyridine hydrochloride 20 0 MG Oral Tablet [facility]) Metronidazole 500 MG Oral Tablet metroni dazole 500 mg tablet TAKE ONE TABLET BY MOUTH EVERY EIGHT hours metronidazole 500 mg tablet TAKE ONE TAB LET BY MOUTH EVERY EIGHT hours completed metr onidazole 500 MG Oral Tablet [facility] ([facility]) Ondansetron 4 MG Oral Tablet ondansetron HCl 4 mg tablet TAKE ONE TABLET BY MOUTH EVERY SIX hours NEEDED FOR NAUSEA FOR TWO DAYS ondansetron HCl 4 mg tablet TAKE ONE TABLET BY MOUTH EVERY SIX hours NEEDED FOR NAUSEA FOR TWO DAYS completed ondansetron 4 MG Oral Tablet [facility] ([facility]) Ciprofloxacin 500 MG Oral Tablet ciprofl oxacin 500 mg tablet TAKE ONE TABLET BY MOUTH TWICE DAILY FOR 7 DAYS ciprofloxacin 500 mg tablet TAKE ONE TAB LET BY MOUTH TWICE DAILY FOR 7 DAYS completed ciprofloxacin 500 MG Oral Tablet [facility]) Cholecalciferol 2000 UNT Oral Capsule Vi tamin D3 50 mcg (2,000 unit) capsule TAKE ONE CAPSULE BY MOUTH ONCE DAILY Vitamin D3 50 mcg (2,000 unit) capsule T ADALI ONE CAPSULE BY MOUTH ONCE DAILY comple otto cholecalciferol 0.05 MG Oral Capsule LOYDA ([facility]) Ciprofloxacin 500 MG Oral Tablet ciprofl oxacin 500 mg tablet TAKE ONE TABLET BY MOUTH TWICE DAILY FOR 7 DAYS ciprofloxacin 500 mg tablet TAKE ONE TAB LET BY MOUTH TWICE DAILY FOR 7 DAYS completed ciprofloxacin 500 MG Oral Tablet LOYDA ([facility]) NITROFURANTOIN, MACROCRYSTALS 25 MG / Ni trofurantoin, Monohydrate 75 MG Oral Capsule nitrofurantoin monohydrate/macrocrystals 100 mg capsule TAKE ONE CAPSULE BY MOUTH TWICE DAILY FOR SEVEN DAYS nitrofurantoin monohydrate/macrocrystals 100 mg capsule TAKE ONE CAPSULE BY MOUTH TWICE DAILY FOR SEVEN DAYS completed nitrofurantoin, macr ocrystals 25 MG / nitrofurantoin, monohydrate 75 MG Oral Capsule LOYDA ([facility]) Phenazopyridine hydrochloride 200 MG Ora l Tablet phenazopyridine 200 mg tablet TAKE ONE TABLET BY MOUTH THREE TIMES DAILY FOR TWO DAYS phenazopyridine 200 mg tablet TAKE ONE TABLET BY MOUTH THREE TIMES DAILY FOR TWO DAYS completed phenazopyridine hydrochloride 20 0 MG Oral Tablet LOYDA ([facility]) Isibloom 0.15 mg-0.03 mg tablet [id number] completed Isibloom 0.15 mg-0.03 mg tablet LOYDA ([facility]) Isibloom 0.15 mg-0.03 mg tablet [id number] completed Isibloom 0.15 mg-0.03 mg tablet LOYDA ([facility]) doxycycline hyclate 100 MG Oral Tablet d oxycycline hyclate 100 mg tablet TAKE ONE TABLET BY MOUTH TWICE DAILY FOR 7 DAYS doxycycline hyclate 100 mg tablet TAKE ONE TABLET BY MOUTH TWICE DAILY FOR 7 DAYS completed doxycycline hyclate 100 MG Oral Tablet LOYDA ([facility]) doxycycline hyclate 100 MG Oral Tablet d oxycycline hyclate 100 mg tablet TAKE ONE TABLET BY MOUTH TWICE DAILY FOR 7 DAYS doxycycline hyclate 100 mg tablet TAKE ONE TABLET BY MOUTH TWICE DAILY FOR 7 DAYS completed doxycycline hyclate 100 MG Oral Tablet LOYDA ([facility]) Insurance Providers Payer name Policy type / Coverage type Policy ID Covered republican ID Covered republican's relationship to mckeon Policy Mckeon Plan Information [facility] [id number] S [id number] [facility] [place] [id number] FA2 [id number] [place] [id number] FA2 [id number] [place] [id number] FA2 [id number] MEDICAID [id number] SP [id number] MEDICAID [id number] SP [id number] Medicaid-Pcap Medicaid [id number] Self Medicaid S [id number] [place] [id number] FA2 [id number] [place] [id number] FA2 [id number] Medicaid S [id number] S [id number] MEDICAID [id number] SP [id number] MEDICAID [id number] SP [id number] Medicaid S [id number] S [id number] [place] [id number] FA2 [id number] MEDICAID -O/P [id number] [place] - O/P [id number] 18 [id number] [place] - O/P 1 19 1 MEDICAID [id number] S [id number] UN COMMUNITY PLAN MCDO [id number] SP [id number] HU[place]NA [place] O [id number] S [id number] SELF PAY O [id number] S [id number] [place] P [id number] S [id number] Medicaid P [id number] S [id number] [place] [id number] FA2 [id number] [facility] OFFICE OF MENTAL HEALTH [id number] S [id number] Medicaid-Pcap Medicaid [id number] Self [id number] Health Net [employer] [facility] Commercial [id number] Family Dependent Pierre Lev[place]Buck [place] [id number] Medicaid-Pcap Medicaid [id number] Self [id number] [facility] [id number] Family Dependent [id number] Medicaid-Pcap Medicaid [id number] Self [id number] [facility] [id number] Family Dependent [id number] [facility] [id number] Family Dependent [id number] Medicaid-Pcap Medicaid [id number] Self [id number] [facility] [id number] Family Dependent [id number] Medicaid-Pcap Medicaid [id number] Self [id number] [facility] [id number] Family Dependent [id number] EMEDNY [id number] SP [id number] [place] [id number] SP [id number] Y [facility] [id number] Family Dependent [facility] MAGO O [id number] C [id number] Medicaid-Pcap Medicaid [id number] Self [id number] Health Net [facility] [id number] Family Dependent Pierre arceo II [id number] UN COMMUNITY [employer]AN [facility] [id number] SP [id number] [facility] Commercial [id number] Family Dependent [facility] COMMUNITY PLAN MCDO [id number] SP [id number] PGBA [facility] [id number] FA2 [id number] HEALTHNET/ AD P [id number] C [id number] HEALTHNET/ AD P 000 C 000 MEDICAID [id number] SP [id number] [employer]ALTH[employer]/ AD P UNAVAILABLE C UNAVAILABLE Problems, Conditions, and Diagnoses Code Display Name Description Problem Type Effective Dates Data Source(s) Borderline personality disorder Borderline Perso nality Disorder Problem 03/09/2021 12:00:00 AM EDT LOYDA ([facility]) F12.10 Cannabis abuse, uncomplicated Cannabis Use Disorder, M ild Condition 11/05/2020 12:00:00 AM EDT [facility] ([facility]) F31.9 Bipolar disorder, unspecified Unspecified Bipola r and Related Disorder Condition 11/05/2020 12:00:00 AM EDT [facility] ([facility]) [id number] Cyst of right ovary Cyst of Right Ovary Problem 09/18/2020 12:00:00 AM EDT LOYDA ([facility]) [id number] History of attempted suicide History of Attempted Suic piper Problem 09/18/2020 12:00:00 AM EDT LO[facility]DA ([facility]) [id number] Cyst of right ovary Cyst of Right Ovary Problem 09/18/2020 12:00:00 AM EDT LO[facility] ([facility]) [id number] History of attempted suicide History of Attempted Suic piper Problem 09/18/2020 12:00:00 AM EDT LO[facility]DA ([facility]) [id number] Cyst of right ovary Cyst of Right Ovary Problem 09/18/2020 12:00:00 AM EDT [facility] ([facility]) [id number] History of attempted suicide History of Attempted Suic piper Problem 09/18/2020 12:00:00 AM EDT [facility]DA ([facility]) F43.12 Post-traumatic stress disorder, chronic Post-traumatic stress disorder, chronic Condition 04/08/2020 12:00:00 AM EDT [facility] ([facility]) F60.3 Borderline personality disorder Borderline Personality Disorder Condition 04/08/2020 12:00:00 AM EDT [facility] ([facility]) F31.2 Bipolar disorder, current episode manic severe with psychotic features Bipolar I Disorder, Current or most recent episode manic, With psychotic features Condition 04/08/2020 12:00:00 AM EDT [facility] ([facility]) [id number] Procedure by method Procedure by Method Problem 0 02/27/2019 12:00:00 AM EDT - 09/18/2020 12:00:00 AM EDT LOYDA ([facility]) [id number] Procedure by method Procedure by Method Problem 0 02/27/2019 12:00:00 AM EDT - 09/18/2020 12:00:00 AM EDT LO[facility]DA ([facility]) [id number] Procedure by method Procedure by Method Problem 0 02/27/2019 12:00:00 AM EDT - 09/18/2020 12:00:00 AM EDT LOYDA ([facility]) [id number] ultrasound finding Ultrasound Find ing Problem 10/06/2017 12:00:00 AM EDT - 09/18/2020 12:00:00 AM EDT [facility] ([facility]) [id number] ultrasound finding Ultrasound Find ing Problem 10/06/2017 12:00:00 AM EDT - 09/18/2020 12:00:00 AM EDT [facility] ([facility]) [id number] ultrasound finding Ultrasound Find ing Problem 10/06/2017 12:00:00 AM EDT - 09/18/2020 12:00:00 AM EDT [facility] ([facility]) [id number] Reproductive care management Reproductive Care Managem ent Problem 06/28/2017 12:00:00 AM EST - 09/18/2020 12:00:00 AM EDT [facility] ([facility]) [id number] Body mass index 30+ - obesity Body Mass Index 30+ - Ob esity Problem 06/28/2017 12:00:00 AM EST - 09/18/2020 12:00:00 AM EDT [facility] ([facility]) [id number] Reproductive care management Reproductive Care Managem ent Problem 06/28/2017 12:00:00 AM EST - 09/18/2020 12:00:00 AM EDT [facility] ([facility]) [id number] Body mass index 30+ - obesity Body Mass Index 30+ - Ob esity Problem 06/28/2017 12:00:00 AM EST - 09/18/2020 12:00:00 AM EDT [facility] ([facility]) [id number] Reproductive care management Reproductive Care Managem ent Problem 06/28/2017 12:00:00 AM EST - 09/18/2020 12:00:00 AM EDT [facility] ([facility]) [id number] Body mass index 30+ - obesity Body Mass Index 30+ - Ob esity Problem 06/28/2017 12:00:00 AM EST - 09/18/2020 12:00:00 AM EDT [facility] ([facility]) Surgeries/Procedures Procedure Description Date Indications Data Source(s) OFFICE OUTPATIENT NEW 30 MINUTES 12/06/2020 12:00:00 A M EDT MED[facility] ([facility]) Extended Individual Psychotherapy - 45 min 11/05/2020 12:00:00 AM EDT - 11/05/2020 12:00:00 AM EDT [facility] ([facility]) Extended Individual Psychotherapy - 45 min 12:00:00 AM EDT [facility] ([facility]) Extended Individual Psychotherapy - 45 min 10/08/2020 12:00:00 AM EDT - 10/08/2020 12:00:00 AM EDT [facility] ([facility]) Extended Individual Psychotherapy - 45 min 12:00:00 AM EDT [facility] ([facility]) Psychiatric Diagnostic Evaluation (Non-Medical) 09/17/2020 12:00:00 AM EDT - 09/17/2020 12:00:00 AM EDT [facility] ([facility]) Psychiatric Diagnostic Evaluation (Non-Medical) 2020 12:00:00 AM EDT [facility] ([facility]) OFFICE OUTPATIENT VISIT 15 MINUTES 04/08 12:00:00 AM EDT - 04/08/2020 12:00:00 AM EDT [facility] ([facility]) OFFICE OUTPATIENT VISIT 15 MINUTES 04/07/2020 12:00:00 AM EDT [facility] ([facility]) MHC Telemed E/M Lvl 3--Est pt 03/26/2020 12:00:00 AM EDT - 03/26/2020 12:00:00 AM EDT [facility] ([facility]) MHC Telemed E/M Lvl 3--Est pt 03/26/2020 12:00:00 AM E DT [facility] ([facility]) Extended Individual Psychotherapy - 45 min 03/26/2020 12:00:00 AM EDT - 03/26/2020 12:00:00 AM EDT [facility] ([facility]) Extended Individual Psychotherapy - 45 min 0 12:00:00 AM EDT [facility] ([facility]) Extended Individual Psychotherapy - 45 min 03/16/2020 12:00:00 AM EDT - 03/16/2020 12:00:00 AM EDT [facility] ([facility]) Extended Individual Psychotherapy - 45 min 0 12:00:00 AM EDT [facility] ([facility]) Extended Individual Psychotherapy - 45 min 03/09/2020 12:00:00 AM EDT - 03/09/2020 12:00:00 AM EDT [facility] ([facility]) Extended Individual Psychotherapy - 45 min 0 12:00:00 AM EDT [facility] ([facility]) Extended Individual Psychotherapy - 45 min 02/13/2020 12:00:00 AM EDT - 02/13/2020 12:00:00 AM EDT [facility] ([facility]) Extended Individual Psychotherapy - 45 min 12:00:00 AM EDT [facility] ([facility]) Results ID Date Data Source [id number] 03/09/2021 12:00:00 AM EDT [facility]) Name Value Range Interpretation Code Description Data Shagufta rce(s) Supporting Document(s) Reagin Ab [Presence] in Serum by RPR non-reactive non-reactive RPR (DX) W/refl Titer and Confirmatory Testing [facility]) ID Date Data Source [id number] 03/09/2021 12:00:00 AM EDT [facility]) Name Value Range Interpretation Code Description Data Shagufta rce(s) Supporting Document(s) Neisseria gonorrhoeae rRNA [Presence] in Unspecified specimen by Probe and target amplification method not detected not detected Neis seria Gonorrhoeae RNA, Tma, Urogenital [facility] ([facility]) Chlamydia trachomatis rRNA [Presence] in Unspecified specimen by Probe and target amplification method not detected not detected Chla mydia Trachomatis RNA, Tma, Urogenital [facility] ([facility]) Trichomonas vaginalis rRNA [Presence] in Unspecified specimen by Probe and target amplification method not detected not detected sure swab(R) Trichomonas Vaginalis RNA, Ql, Tma [facility]) Service comment 05 see note Assay Details [facility] ([facility]) Mycoplasma genitalium DNA [Presence] in Unspecified specimen by Probe and target amplification method not detected not detected sureswab(R ), Mycoplasma Genitalium,realtime PCR [facility]) ID Date Data Source [id number] 03/09/2021 12:00:00 AM EDT [facility]) Name Value Range Interpretation Code Description Data Shagufta rce(s) Supporting Document(s) Hepatitis C virus Ab Signal/Cutoff in Serum or Plasma by Imm unoassay 0.02 ratio <1.00 Index LOYDA ([facility]) Hepatitis C virus Ab [Presence] in Serum or Plasma by Immuno assay nonreactive nonreactive Hepatitis C Antibody [facility] ([facility]) HIV 1+2 Ab+HIV1 p24 Ag [Presence] in Serum or Plasma b y Immunoassay non-reactive non-reactive HIV Ag/Ab, 4TH Gen [facility] ([facility]) ID Date Data Source [id number] 03/06/2021 10:18:00 PM EDT [facility] ([facility]) Name Value Range Interpretation Code Description Data Shagufta rce(s) Supporting Document(s) istat B-HCG < 5.0 Istat B-HCG [facility] ([facility]) ID Date Data Source [id number] 03/06/2021 10:18:00 PM EDT [facility] ([facility]) Name Value Range Interpretation Code Description Data Shagufta rce(s) Supporting Document(s) istat B-HCG < 5.0 Istat B-HCG [facility] ([facility]) ID Date Data Source [id number] 12/07/2020 08:28:00 AM EDT [facility] ([facility]) Name Value Range Interpretation Code Description Data Shagufta rce(s) Supporting Document(s) Choriogonadotropin.beta subunit [Moles/volume] in Seru m or Plasma Laboratory test result [facility] ([facility], [facility]) GESTATIONAL AGE APPROXIMATE HCG RANGE [...] monitoring the treatment of cancer patients. Siemens [place] methodology. ID Date Data Source [id number] 12/06/2020 12:50:00 PM EDT [facility]) Name Value Range Interpretation Code Description Data Shagufta rce(s) Supporting Document(s) Bacteria identified in Urine by Culture Laboratory test result [facility] ([facility]) FULL REPORT IN LAB NOTES ([facility] and [facility] ). SPECIMEN APPEARS CONTAMINATED ID Date Data Source [id number] 10/18/2020 11:56:00 PM EDT [facility]) Name Value Range Interpretation Code Description Data Shagufta rce(s) Supporting Document(s) GC DNA probe negative negative GC DNA Probe [facility] ([facility]) chlamydia DNA probe negative negative Chlamydia DNA Pr obe [facility] ([facility]) ID Date Data Source [id number] 10/18/2020 11:56:00 PM EDT [facility] ([facility]) Name Value Range Interpretation Code Description Data Shagufta rce(s) Supporting Document(s) chlamydia DNA probe negative negative Chlamydia DNA Pr obe [facility] ([facility]) GC DNA probe negative negative GC DNA Probe [facility] ([facility]) ID Date Data Source [id number] 10/18/2020 11:26:00 PM EDT [facility]) Name Value Range Interpretation Code Description Data Shagufta rce(s) Supporting Document(s) trichomonas vaginalis (amp) not detected negative Tricho monas Vaginalis (Amp) [facility]) ID Date Data Source [id number] 10/18/2020 11:26:00 PM EDT [facility]) Name Value Range Interpretation Code Description Data Shagufta rce(s) Supporting Document(s) trichomonas vaginalis (amp) not detected negative Tricho monas Vaginalis (Amp) [facility]) ID Date Data Source [id number] 10/18/2020 10:32:00 PM EDT [facility]) Name Value Range Interpretation Code Description Data Shagufta rce(s) Supporting Document(s) ID Date Data Source [id number] 10/18/2020 10:32:00 PM EDT [facility]) Name Value Range Interpretation Code Description Data Shagufta rce(s) Supporting Document(s) HCG, serum quantitative < 1.0 HCG, Serum Q uantitative [facility]) ID Date Data Source [id number] 10/18/2020 10:32:00 PM EDT [facility]) Name Value Range Interpretation Code Description Data Shagufta rce(s) Supporting Document(s) ID Date Data Source [id number] 10/18/2020 10:32:00 PM EDT [facility]) Name Value Range Interpretation Code Description Data Shagufta rce(s) Supporting Document(s) HCG, serum quantitative < 1.0 HCG, Serum Q uantitative [facility]) ID Date Data Source [id number] 09/18/2020 05:28:00 PM EDT [facility]) Name Value Range Interpretation Code Description Data Shagufta rce(s) Supporting Document(s) HCG negative Hcg [facility]) ID Date Data Source [id number] 09/18/2020 05:28:00 PM EDT [facility] ([facility]) Name Value Range Interpretation Code Description Data Shagufta rce(s) Supporting Document(s) HCG negative Hcg LOYDA ([facility]) ID Date Data Source [id number] 09/18/2020 05:28:00 PM EDT [facility] ([facility]) Name Value Range Interpretation Code Description Data Shagufta rce(s) Supporting Document(s) HCG negative Hcg LOYDA ([facility]) ID Date Data Source [id number] 02/08/2020 05:55:00 AM EDT [facility] Name Value Range Interpretation Code Description Data Shagufta rce(s) Supporting Document(s) HGBA1C 5.6 % N [facility] ID Date Data Source [id number] 02/07/2020 08:08:00 PM EDT [facility] Name Value Range Interpretation Code Description Data Shagufta rce(s) Supporting Document(s) BG FASTING 94 mg/dL 70-100 N [facility] ID Date Data Source [id number] 02/07/2020 08:08:00 PM EDT [facility] Name Value Range Interpretation Code Description Data Shagufta rce(s) Supporting Document(s) HCT 38.8 % 36.0-47.0 N [facility] HGB 12.5 g/dL 12.0-15.5 [facility] MCH 32.2 G/DL pg 32.0-36.5 N [facility] MCHC 27.7 PG % 27.0-33.0 [facility] PLATELETS 271 10 10*3/mm3 150-450 N [facility] RBC 4.52 10 10*6/mm3 4.00-5.40 N [facility] RDW 12.9 % 11.5-14.5 N [facility] WBC TOTAL 19.7 4.0-10.0 H [facility] Procedure Social History Code Duration Value Status Description Data Source(s ) Smoking 12/06/2020 12:00:00 AM EDT Never Smoked Cigarettes com pleted Never Smoked Cigarettes [facility] ([facility]) Smoking 11/05/2020 12:00:00 AM EDT Unknown if ever smoked comp leted Unknown if ever smoked [facility] ([facility]) Smoking 10/13/2020 12:00:00 AM EDT Current Smoker completed Curre nt Smoker eCW1 ([facility]) Smoking 10/13/2020 12:00:00 AM EDT Current Smoker completed Curre nt Smoker eCW1 ([facility]) Smoking 10/08/2020 12:00:00 AM EDT Unknown if ever smoked comp leted Unknown if ever smoked [facility] ([facility]) Smoking 09/17/2020 12:00:00 AM EDT Unknown if ever smoked comp leted Unknown if ever smoked [facility] ([facility]) Smoking 04/08/2020 12:00:00 AM EDT Unknown if ever smoked comp leted Unknown if ever smoked [facility] ([facility]) Smoking 03/26/2020 12:00:00 AM EDT Unknown if ever smoked comp leted Unknown if ever smoked [facility] ([facility]) Smoking 03/16/2020 12:00:00 AM EDT Unknown if ever smoked comp leted Unknown if ever smoked [facility] ([facility]) Smoking 03/09/2020 12:00:00 AM EDT Unknown if ever smoked comp leted Unknown if ever smoked [facility] ([facility]) Smoking 02/13/2020 12:00:00 AM EDT Unknown if ever smoked comp leted Unknown if ever smoked [facility] ([facility]) Vital Signs ID Date Data Source [id number] Name Value Range Interpretation Code Description Data Source(s) Diastolic blood pressure 72 mm[Hg] 72 mm[Hg] LOYDA ([facility]) Body height 60 [in_i] 60 [in_i] [facility]DA ([facility]) Body mass index (BMI) [Ratio] 43.6 kg/m2 43.6 k g/m2 LO[facility] ([facility]) Systolic blood pressure 103 mm[Hg] 103 mm[Hg] A THENA ([facility]) Body weight 3576 [oz_av] 3576 [oz_av] LOYDA ([facility]) Diastolic blood pressure 72 mm[Hg] 72 mm[Hg] LOYDA ([facility]) Body height 60 [in_i] 60 [in_i] LOYDA ([facility]) Body mass index (BMI) [Ratio] 43.6 kg/m2 43.6 k g/m2 LOY[facility] ([facility]) Systolic blood pressure 103 mm[Hg] 103 mm[Hg] A THENA ([facility]) Body weight 3576 [oz_av] 3576 [oz_av] LOYDA ([facility]) Respiratory rate 17 /min 17 /min [facility] ( [facility]) Oxygen saturation in Arterial blood by Pulse oximetry 94 % 94 % [facility] ([facility], [facility]) Body temperature 97.5 [degF] 97.5 [degF] [facility] ([facility]) Body weight 220.00 [lb_av] 220.00 [lb_av] MEDEN T ([facility], [facility]) Systolic blood pressure 118 mm[Hg] 118 mm[Hg] M EDENT ([facility], [facility]) Diastolic blood pressure 78 mm[Hg] 78 mm[Hg] [facility] ([facility]) Heart rate 93 /min 93 /min [facility] ([facility], [facility]) Body height 60 [in_i] 60 [in_i] [facility] ([facility]) 5'0" Body mass index (BMI) [Ratio] 43.0 kg/m2 43.0 k g/m2 [facility] ([facility]) Body weight 221.6 [lb_av] 221.6 [lb_av] eCW1 ([facility]) Body weight 100.52 kg 100.52 kg eCW1 ([facility]) Body height 64 [in_i] 64 [in_i] eCW1 ([facility]) Body mass index (BMI) [Ratio] 38.03 kg/m2 38.03 kg/m2 eCW1 ([facility]) Systolic blood pressure 126 mm[Hg] 126 mm[Hg] e CW1 ([facility]) Diastolic blood pressure 86 mm[Hg] 86 mm[Hg] eCW1 ([facility]) Body mass index (BMI) [Ratio] 42.8 kg/m2 42.8 k g/m2 LOY[facility] ([facility]) Diastolic blood pressure 85 mm[Hg] 85 mm[Hg] LOYDA ([facility]) Body height 60 [in_i] 60 [in_i] LOYDA ([facility]) Systolic blood pressure 135 mm[Hg] 135 mm[Hg] A [facility] ([facility]) Body weight 3510.4 [oz_av] 3510.4 [oz_av] ATHEN A ([facility]) Systolic blood pressure 135 mm[Hg] 135 mm[Hg] A [facility] ([facility]) Body height 60 [in_i] 60 [in_i] LOYDA ([facility]) Body mass index (BMI) [Ratio] 42.8 kg/m2 42.8 k g/m2 LOYDA ([facility]) Body weight 3510.4 [oz_av] 3510.4 [oz_av] ATHEN A ([facility]) Diastolic blood pressure 85 mm[Hg] 85 mm[Hg] LOYDA ([facility]) Diastolic blood pressure 85 mm[Hg] 85 mm[Hg] LOYDA ([facility]) Body height 60 [in_i] 60 [in_i] LOYDA ([facility]) Body mass index (BMI) [Ratio] 42.8 kg/m2 42.8 k g/m2 LOYDA ([facility]) Systolic blood pressure 135 mm[Hg] 135 mm[Hg] A [facility] ([facility]) Body weight 3510.4 [oz_av] 3510.4 [oz_av] NURIA A ([facility]) Patient Treatment Plan of Care Planned Activity Planned Date Details Description Data Source (s) Cholecalciferol 1999 UNT Oral Capsule LOYDA ([facility]) Phenazopyridine hydrochloride 200 MG Oral Tablet LOYDA ([facility]) Ondansetron 4 MG Oral Tablet LO[facility]DA ([facility]) Ondansetron 4 MG Disintegrating Oral Tablet LOYDA ([facility]) NITROFURANTOIN, MACROCRYSTALS 25 MG / Ni trofurantoin, Monohydrate 75 MG Oral Capsule LOYDA ([facility]) Metronidazole 500 MG Oral Tablet LOYDA ([facility]) Isibloom 0.15 mg-0.03 mg tablet LOYDA ([facility]) Fluconazole 150 MG Oral Tablet LOYDA ([facility]) doxycycline hyclate 100 MG Oral Tablet LOYDA ([facility]) Ciprofloxacin 500 MG Oral Tablet LOYDA ([facility]) Cholecalciferol 2000 UNT Oral Capsule LOYDA ([facility]) Phenazopyridine hydrochloride 200 MG Oral Tablet LOYDA ([facility]) Ondansetron 4 MG Oral Tablet LOYDA ([facility]) Ondansetron 4 MG Disintegrating Oral Tablet LOYDA ([facility]) NITROFURANTOIN, MACROCRYSTALS 25 MG / Ni trofurantoin, Monohydrate 75 MG Oral Capsule LOYDA ([facility]) Metronidazole 500 MG Oral Tablet LOYDA ([facility]) Isibloom 0.15 mg-0.03 mg tablet LOYDA ([facility]) Fluconazole 150 MG Oral Tablet LOYDA ([facility]) doxycycline hyclate 100 MG Oral Tablet LOYDA ([facility]) Ciprofloxacin 500 MG Oral Tablet LOYDA ([facility]) Phenazopyridine hydrochloride 200 MG Oral Tablet LOYDA ([facility]) Ondansetron 4 MG Oral Tablet LOYDA ([facility]) NITROFURANTOIN, MACROCRYSTALS 25 MG / Ni trofurantoin, Monohydrate 75 MG Oral Capsule LOYDA ([facility]) Metronidazole 500 MG Oral Tablet LOYDA ([facility]) doxycycline hyclate 100 MG Oral Tablet LOYDA ([facility])
== END 2021-04-02 19:33 | disposition left against medical advice (07) ==
LOC: M ED 15:53
DX: Z53.21 Procedure and treatment not carried out due to patient leaving prior to being seen by health care provider (principal)

== ENCOUNTER → 2021-04-03 | Outpatient (REF) | payer OTHER ==
[2021-04-03 17:56] LABS: APPEARANCE, URINE CLEAR (CLEAR); BACTERIA, URINE AUTO NEGATIVE (NEGATIVE); BILIRUBIN, URINE AUTO NEGATIVE (NEGATIVE); BLOOD, URINE BLOOD 1+ (NEGATIVE); COLOR, URINE YELLOW (YELLOW); GLUCOSE, URINE (UA) AUTO NEGATIVE (NEGATIVE); KETONE, URINE AUTO NEGATIVE (NEGATIVE); LEUKOCYTE ESTERASE, URINE AUTO NEGATIVE (NEGATIVE); MUCUS, URINE SMALL (NEGATIVE); NITRITE, URINE AUTO NEGATIVE (NEGATIVE); PROTEIN, URINE AUTO NEGATIVE (NEGATIVE); RBC, URINE AUTO 3 /HPF (0-3); SPECIFIC GRAVITY URINE AUTO 1.015 (1.002-1.035); SQUAMOUS EPITHELIAL CELL UR AU 2 /HPF (0-6); UROBILINOGEN, URINE AUTO 0.2 mg/dL (0.0-2.0); WBC, URINE AUTO 1 /HPF (0-3)
[2021-04-04 11:11] LABS: URINE PREG TEST NEGATIVE (NEGATIVE)
== END ==
LOC: M LAB REF 17:41
PROVIDERS: ATTEND Physician Assistant Medical
DX: R30.0 Dysuria (principal)

== ENCOUNTER → 2021-04-06 | Outpatient (REF) | payer OTHER ==
[2021-04-06 18:27] LABS: APPEARANCE, URINE HAZY (CLEAR); BACTERIA, URINE AUTO NEGATIVE (NEGATIVE); BILIRUBIN, URINE AUTO NEGATIVE (NEGATIVE); BLOOD, URINE BLOOD NEGATIVE (NEGATIVE); COLOR, URINE YELLOW (YELLOW); GLUCOSE, URINE (UA) AUTO NEGATIVE (NEGATIVE); KETONE, URINE AUTO NEGATIVE (NEGATIVE); LEUKOCYTE ESTERASE, URINE AUTO TRACE (NEGATIVE); MUCUS, URINE SMALL (NEGATIVE); NITRITE, URINE AUTO NEGATIVE (NEGATIVE); PROTEIN, URINE AUTO NEGATIVE (NEGATIVE); RBC, URINE AUTO 4 /HPF (0-3); SPECIFIC GRAVITY URINE AUTO 1.017 (1.002-1.035); SQUAMOUS EPITHELIAL CELL UR AU 6 /HPF (0-6); WBC, URINE AUTO 1 /HPF (0-3)
== END ==
LOC: M SFHCWAGY 17:13
PROVIDERS: ATTEND Advanced Practice Midwife
DX: R31.9 Hematuria, unspecified (principal)

== ENCOUNTER → 2024-09-23 | Outpatient (CLI) | payer OTHER ==
[~2024-09-23] MED LIST changes: -ARIP10TA32; +ARIP10TA63; -LATU40TA PO; +LATU40TA2 PO; +ONDA-282 PO; -ONDA4TAB6 PO; -SIME180C25 PO; +SIME1CAP4 PO
== END ==
LOC: M WHC 07:11
PROVIDERS: ATTEND Specialist
DX: Z36.89 Encounter for other specified antenatal screening (principal); Z3A.27 27 weeks gestation of pregnancy; O32.1XX0 Maternal care for breech presentation, not applicable or unspecified

== ENCOUNTER → 2024-10-08 | Outpatient (REF) | payer OTHER | LOC: M PLALAB 09:20 | PROVIDERS: ATTEND Nurse Practitioner Family | DX: O16.9 Unspecified maternal hypertension, unspecified trimester (principal) ==

== ENCOUNTER → 2024-10-08 | Outpatient (CLI) | payer OTHER ==
[2024-10-08 14:07] LABS: URIC ACID 3.4 MG/DL (3.1-7.8)
[2024-10-08 14:09] LABS: LDH LACTATE DEHYDROGENASE 124 U/L (120-246)
[2024-10-08 14:10] LABS: ALT/SGPT 16 U/L (7.0-40); AST/SGOT 12 U/L (<34); BILIRUBIN,TOTAL 0.4 MG/DL (0.3-1.2); CREATININE FOR GFR 0.41 MG/DL (0.55-1.30); GLOMERULAR FILTRATION RATE > 90.0 (>60)
== END ==
LOC: M PLALAB 10:15
PROVIDERS: ATTEND Nurse Practitioner Family
DX: O16.9 Unspecified maternal hypertension, unspecified trimester (principal)

== ENCOUNTER → 2024-10-08 | Outpatient (CLI) | payer OTHER ==
[2024-10-08 14:05] LABS: HEMOGLOBIN 11.9 g/dl (12.0-15.5); MEAN CORPUSCULAR HEMOGLOBIN 27.6 pg (27.0-33.0); MEAN CORPUSCULAR HGB CONC 32.2 g/dl (32.0-36.5); MEAN CORPUSCULAR VOLUME 85.8 fl (80.0-96.0); PLATELET COUNT, AUTOMATED 302 10^3/uL (150-450); RED BLOOD COUNT 4.31 10^6/uL (4.00-5.40)
[2024-10-08 14:27] LABS: TOTAL PROTEIN,RANDOM URINE 24.5 MG/DL (0.0-14.0)
[2024-10-08 14:32] LABS: CREATININE,RANDOM URINE 152.8 MG/DL
[2024-10-08 14:59] LABS: HIV 1&2 SCREEN NEGATIVE (NEGATIVE)
[2024-10-08 15:01] LABS: Trichomonas vaginalis (AMP) NOT DETECTED (NEGATIVE)
[2024-10-08 15:07] LABS: HEPATITIS C VIRUS ABY INDEX 0.05 INDEX (<0.8)
[2024-10-08 15:24] LABS: GC DNA AMPLIFICATION NEGATIVE (NEGATIVE)
== END ==
LOC: M PLALAB 10:13
PROVIDERS: ATTEND Specialist
DX: Z34.93 Encounter for supervision of normal pregnancy, unspecified, third trimester (principal)

== ENCOUNTER → 2024-10-11 | Outpatient (REF) | payer OTHER ==
[2024-10-11 11:38] LABS: AMORPHOUS SEDIMENT SMALL (NEGATIVE); APPEARANCE, URINE CLOUDY (CLEAR); BACTERIA, URINE AUTO 1+ (NEGATIVE); BILIRUBIN, URINE AUTO NEGATIVE (NEGATIVE); BLOOD, URINE BLOOD NEGATIVE (NEGATIVE); CALCIUM OXALATE CRYSTALS MODERATE; COLOR, URINE YELLOW (YELLOW); GLUCOSE, URINE (UA) AUTO 1+ mg/dL (NEGATIVE); KETONE, URINE AUTO NEGATIVE (NEGATIVE); LEUKOCYTE ESTERASE, URINE AUTO TRACE (NEGATIVE); MUCUS, URINE SMALL (NEGATIVE); NITRITE, URINE AUTO NEGATIVE (NEGATIVE); PROTEIN, URINE AUTO 1+ mg/dL (NEGATIVE); RBC, URINE AUTO 1 /HPF (0-3); SQUAMOUS EPITHELIAL CELL UR AU 18 /HPF (0-6); UROBILINOGEN, URINE AUTO 0.2 mg/dL (0.0-2.0); WBC, URINE AUTO 1 /HPF (0-3)
== END ==
LOC: M SFHCWAGY 10:23
PROVIDERS: ATTEND Advanced Practice Midwife
DX: R30.0 Dysuria (principal)

== ENCOUNTER → 2024-10-28 | Outpatient (CLI) | payer OTHER | LOC: M WHC 10:43 | PROVIDERS: ATTEND Nurse Practitioner Family | DX: O34.211 Maternal care for low transverse scar from previous cesarean delivery (principal); O26.23 Pregnancy care for patient with recurrent pregnancy loss, third trimester; O99.333 Smoking (tobacco) complicating pregnancy, third trimester; F17.218 Nicotine dependence, cigarettes, with other nicotine-induced disorders; O99.213 Obesity complicating pregnancy, third trimester; E66.09 Other obesity due to excess calories; O09.213 Supervision of pregnancy with history of pre-term labor, third trimester; Z3A.32 32 weeks gestation of pregnancy ==

== ENCOUNTER → 2025-04-21 | Outpatient (REF) | payer MEDICAID, OTHER ==
[~2025-04-21] MED LIST changes: -ABIL400I IM; +ARIP400S IM; +PERC5TAB12 PO; +PRENTAB7 PO
[2025-04-21 17:07] LABS: BASO # 0.1 10^3/uL (0.0-0.2); BASO % 0.6 % (0.0-1.0); EOS # 0.5 10^3/uL (0.0-0.5); EOS % 4.9 % (0.0-3.0); LYMPH # 2.3 10^3/uL (1.5-5.0); LYMPH % 22.6 % (24.0-44.0); MONO # 0.5 10^3/uL (0.0-0.8); MONO % 4.4 % (2.0-8.0); NEUTROPHILS # 6.9 10^3/uL (1.5-8.5); NEUTROPHILS % 67.3 % (36.0-66.0); PLATELET COUNT, AUTOMATED 310 10^3/uL (150-450)
[2025-04-21 17:08] LABS: ALT/SGPT 21 U/L (7.0-40); AST/SGOT 15 U/L (<34); CALCIUM LEVEL 8.8 MG/DL (8.5-10.1); CARBON DIOXIDE LEVEL 27 MMOL/L (20-31); CHLORIDE LEVEL 104 MMOL/L (98-107); CREATININE FOR GFR 0.63 MG/DL (0.55-1.30); GLOMERULAR FILTRATION RATE > 90.0 (>60); POTASSIUM SERUM 4.4 MMOL/L (3.5-5.1); SODIUM LEVEL 140 MMOL/L (136-145)
== END ==
LOC: M LAB REF 16:22
PROVIDERS: ATTEND Student in an Organized Health Care Education/Training Program
DX: R00.2 Palpitations (principal)

== ENCOUNTER → 2025-04-26 | Outpatient (CLI) | payer OTHER | LOC: M EKG 13:08 | PROVIDERS: ATTEND Student in an Organized Health Care Education/Training Program | DX: R00.2 Palpitations (principal) ==